=== PATIENT | female | born 1980 | race African-American/Black ===

== ENCOUNTER 2016-08-30 19:43 | Inpatient (IN) | payer MEDICAID ==
[2016-08-30 20:19] LABS: APPEARANCE,URINE CLEAR; BILIRUBIN,URINE NEGATIVE (NEGATIVE); GLUCOSE, URINE NEGATIVE (NEGATIVE); KETONES,URINE NEGATIVE (NEGATIVE); LEUKOCYTE ESTERASE,URINE NEGATIVE (NEGATIVE); NITRITE,URINE NEGATIVE (NEGATIVE); PROTEIN,URINE NEGATIVE (NEGATIVE); URINE SPECIFIC GRAVITY 1.016; UROBILINOGEN,URINE NEGATIVE mg/dL (<2.0)
[2016-08-30 20:38] LABS: URINE BARBITURATES SCREEN NEGATIVE; URINE METHADONE SCREEN NEGATIVE; URINE PHENCYCLIDINE SCREEN NEGATIVE
[2016-08-30] MEDS ORDERED: PENICILLIN G-K 5 MILLION UNIT VIAL ONE (20:38)
[2016-08-30] MEDS ORDERED: PENICILLIN G POTASSIUM 5,000,000 UNIT in DEXTROSE 5%-WATER 100 ML IV ONE (20:40)
[2016-08-30] MEDS ORDERED: MISOPROSTOL 0.2 MG TABLET ONE (21:03)
[2016-08-30] MEDS ORDERED: OXYTOCIN/NORMAL SALINE 0 UNIT/0 ML RTUINJ ONE (21:04)
[2016-08-30] MEDS ORDERED: FENTANYL/BUPIVACAINE/NS/PF 200 MCG/100 ML RTUINJ EPI ONE (21:04)
[2016-08-30] MEDS ORDERED: BUPIVACAINE HCL 0.25 % INJ/PF (2.5 MG/1 ML) 30 ML VIAL ONE (21:04)
[2016-08-30] MEDS ORDERED: EPHEDRINE SULFATE INJ 50 MG/1 ML AMPULE ONE (21:04)
[2016-08-30] MEDS ORDERED: LIDOCAINE 1% INJ-PF (10 MG/ML) 30 ML SDV ONE (21:04)
[2016-08-30] MEDS: RINGERS SOLUTION,LACTATED 1,000 ML IV PRN ×2 (21:19→21:43)
[2016-08-30 21:21] LABS: ABSOLUTE MONOCYTES (AUTO) 0.6 10^3/uL (0.1-1.4); ABSOLUTE NEUT (AUTO) 8.1 10^3/uL (1.7-8.2); BASOPHILS % (AUTO) 0.3 % (0-2); EOSINOPHILS % (AUTO) 0.4 % (0-6); HEMATOCRIT 34.2 % (36.0-47.0); HGB HCT DIFFERENCE -1.2; LYMPHOCYTES % (AUTO) 18.8 % (13-45); MEAN CORPUSCULAR HGB CONC 32.2 g/dL (32.0-36.0); MEAN CORPUSCULAR VOLUME 90 fl (80-97); MONOCYTES % (AUTO) 5.5 % (3-13); RED BLOOD COUNT 3.78 10^6/uL (3.72-5.28); RED CELL DISTRIBUTION WIDTH 14.5 % (11.5-14.0); WHITE BLOOD COUNT 10.8 10^3/uL (4.0-10.5)
[2016-08-30] MEDS ORDERED: PROMETHAZINE HCL INJ 25 MG/1 ML VIAL ONE (21:26)
[2016-08-30] MEDS ORDERED: NALBUPHINE HCL INJ 10 MG/1 ML AMPULE ONE (21:27)
[2016-08-30] MEDS ORDERED: NALOXONE HCL INJ/PF 0.4 MG/1 ML SDV ONE (21:27)
[2016-08-30] MEDS ORDERED: PENICILLIN G-K 5 MILLION UNIT VIAL IV ONE (21:30)
[2016-08-30] MEDS ORDERED: PROMETHAZINE HCL INJ 25 MG/1 ML VIAL IV ONE (21:45)
[2016-08-30] MEDS ORDERED: NALBUPHINE HCL INJ 10 MG/1 ML AMPULE INJ ONE (21:45)
--- NOTE | 2016-08-30 22:01 | L&D Flow Sheet ---
LD Flowsheet Datetime Report Generated by CPN: 08/30/2016 22:00 Datetime: 08/30/2016 21:54 NBP Sys/Mari/Mean (mmHg): 176 (QS system process) : 90 (QS system process) : 118 (QS system process) Pulse: 71 (QS system process) LaborFlag: Labor (QS system process) Datetime: 08/30/2016 21:38 IV/Blood Work: New IV Bag Hung (Jenna Todd, RN) Datetime: 08/30/2016 21:35 Analgesics/Sedatives: Nubain (mg) @ 10 (Jenna Todd, RN) Antiemetics/Antacids: Phenergan IV (mg) @ 12.5 (Jenna Todd, RN) Medication Comments: IVP (Jenna Todd, RN) Datetime: 08/30/2016 21:30 Patient Position/Activity: Right Tilt; Semi-Fowlers (Jenna Todd, RN) Hygiene: Underpad Changed (Jenna Todd, RN) Patient Care Comments: Patient pulled up in bed. (Jenna Todd, RN) Datetime: 08/30/2016 21:24 NBP Sys/Mari/Mean (mmHg): 145 (QS system process) : 86 (QS system process) : 110 (QS system process) Pulse: 88 (QS system process) LaborFlag: Labor (QS system process) Datetime: 08/30/2016 21:22 Dilatation (cm): 4.0 (Jenna Todd, RN) Effacement (%): 90 (Jenna Todd, RN) Station: -3 (Jenna Todd, RN) Exam by: B Perez RN (Jenna Todd, RN) Vaginal Bleeding: None (Jenna Todd, RN) Cervix, Consistency: Moderate (Jenna Todd, RN) Cervix, Position: Midposition (Jenna Todd, RN) Datetime: 08/30/2016 21:15 Stage of : Labor (Jenna Todd, RN) Monitor Mode: External; Palpation (Jenna Todd, RN) Frequency (min): 2.5-4 (Jenna Todd RN) Quality: Moderate (Jenna Todd RN) Duration (sec): 70-100 (Jenna Todd RN) Pattern: Normal: <= 5 Contractions in 10 Minutes (Jenna Todd RN) Resting Tone (Palpate): Relaxed (Jenna Todd RN) Monitor Mode: External US (Jenna Todd RN) Monitor Interventions for FHR: Ultrasound Adjusted (Jenna Todd RN) FHR Baseline Rate : 140 (Jenna Todd RN) FHR Baseline Changes: No Baseline Change (Jenna Todd RN) Variability: Moderate 6-25 bpm (Jenna Todd RN) Accelerations: 15X15 (Jenna Todd RN) Decelerations: Early; Variable (Jenna Todd RN) Pain Scale: 5 (Jenna Todd RN) Pain Presence: Intermittent (Jenna Todd RN) Pain Type: Contraction (Jenna Todd RN) Pain Location: Abdomen; Back (Jenna Todd RN) Pain Goal: 1 (Jenna Todd RN) Pain Relief Measures: Comfort Measures (Jenna Todd RN) Pain Coping: Breathing Through Contractions; Requesting Pain Medication or Epidural (Jenna Todd RN) Comfort Measures: Breathing/Relaxation; Family Support (Jenna Todd RN) Communication: RN at Bedside; RN Reviewed Strip (Jenna Todd RN) LaborFlag: Labor (QS system process) Datetime: 08/30/2016 21:13 Pain Coping: Requesting Pain Medication or Epidural (Jenna Todd, RN) Pain Assessment Comments: Patient requesting epidural (Jenna Todd, RN) Procedure Verify: Correct Patient Identity; Correct Side and Site are Marked; Agreement on Procedure to be Done (Jenna Todd, RN) LaborFlag: Labor (QS system process) Datetime: 08/30/2016 21:03 Monitor Interventions for FHR: Ultrasound Adjusted (Jenna Todd, RN) Datetime: 08/30/2016 21:00 Procedures: Consents Signed (Jenna Todd, RN) Datetime: 08/30/2016 20:59 Dilatation (cm): 4.0 (Jenna Todd, RN) Effacement (%): 90 (Jenna Todd, RN) Station: -3 (Jenna Todd, RN) Exam by: Shea Todd, RN (Jenna Todd, RN) Vaginal Bleeding: Normal Show (Jenna Todd, RN) Cervix, Consistency: Soft (Jenna Todd, RN) Cervix, Position: Midposition (Jenna Todd, RN) Datetime: 08/30/2016 20:58 Membrane Status: Ruptured (Jenna Todd, RN) Membranes Rupture Method: Spontaneous (Jenna Todd, RN) Amniotic Fluid Color: Light Meconium (Jenna Todd, RN) Amniotic Fluid Amount: Scant (Jenna Todd, RN) Amniotic Fluid Odor: None (Jenna Todd, RN) Datetime: 08/30/2016 20:55 NBP Sys/Mari/Mean (mmHg): 153 (QS system process) : 74 (QS system process) : 107 (QS system process) Pulse: 74 (QS system process) LaborFlag: Labor (QS system process) Datetime: 08/30/2016 20:50 Antibiotics: Start Antibiotics; Penicillin IV (Units) @ 5 million units (Jenna Todd, RN) Datetime: 08/30/2016 20:49 IV/Blood Work: IV Started; IV Bolus Started (Jenna Todd, RN) Patient Care Comments: 18 gauge in R forearm on second attempt by Mercy Geronimo RN (Jenna Todd, RN) Datetime: 08/30/2016 20:45 Stage of : Labor (Jenna Todd RN) Respirations: 18 (Jenna Todd RN) Monitor Mode: External; Palpation (Jenna Todd RN) Frequency (min): 4-5.5 (Jenna Todd RN) Quality: Moderate (Jenna Todd RN) Duration (sec): 80-120 (Jenna Todd RN) Pattern: Normal: <= 5 Contractions in 10 Minutes (Jenna Todd RN) Resting Tone (Palpate): Relaxed (Jenna Todd RN) Monitor Mode: External US (Jenna Todd RN) Monitor Interventions for FHR: Ultrasound Adjusted (Jenna Todd RN) FHR Baseline Rate : 130 (Jenna Todd RN) FHR Baseline Changes: No Baseline Change (Jenna Todd RN) Variability: Moderate 6-25 bpm (Jenna Todd RN) Accelerations: 15X15 (Jenna Todd RN) Pain Scale: 5 (Jenna Todd RN) Pain Presence: Intermittent (Jenna Todd RN) Pain Type: Contraction (Jenna Todd RN) Pain Location: Abdomen; Back (Jenna Todd RN) Pain Goal: 1 (Jenna Todd RN) Pain Relief Measures: Comfort Measures (Jenna Todd RN) Pain Coping: Breathing Through Contractions (Jenna Todd RN) Comfort Measures: Breathing/Relaxation; Family Support (Jenna Todd RN) Communication: RN at Bedside; RN Reviewed Strip (Jenna Todd RN) LaborFlag: Labor (QS system process) Datetime: 08/30/2016 20:36 Comments: maternal HR tracing, RN at bedside (Jenna Todd, RN) Datetime: 08/30/2016 20:29 Monitor Interventions for FHR: Ultrasound Adjusted (Jenna Todd, RN) Datetime: 08/30/2016 20:28 Patient Position/Activity: Right Tilt; High Fowlers (Jenna Todd, RN) Datetime: 08/30/2016 20:23 NBP Sys/Mari/Mean (mmHg): 143 (QS system process) : 93 (QS system process) : 114 (QS system process) Pulse: 76 (QS system process) LaborFlag: Antepartum (QS system process) Datetime: 08/30/2016 20:20 Frequency (min): Per patient every 6 minutes (Jenna Todd, RN) Pain Scale: 5 (Jenna Todd, RN) Pain Presence: Intermittent (Jenna Todd, RN) Pain Type: Contraction (Jenna Todd, RN) Pain Location: Abdomen; Back (Jenna Todd, RN) Pain Goal: 1 (Jenna Todd, RN) Pain Relief Measures: Comfort Measures (Jenna Todd, RN) Pain Coping: Breathing Through Contractions (Jenna Todd, RN) Vaginal Bleeding: Normal Show (Ejnna Todd, RN) Level of Consciousness: Fully Conscious (Jenna Todd, RN) DTR's/Clonus: DTRs 1+; No Clonus (Jenna Todd, RN) Headache: Denies (Jenna Todd, RN) Breath Sounds, Left: Clear and Equal (Jenna Todd, RN) Breath Sounds, Right: Clear and Equal (Jenna Todd, RN) Nausea/Vomiting: Present (Annotations: nausea) (Jenna Todd, RN) RUQ Epigastric Pain: Denies (Jenna Todd, RN) LaborFlag: Antepartum (QS system process) Datetime: 08/30/2016 20:18 Pain Scale: 5 (Jenna Todd RN) Pain Presence: Intermittent (Jenna Todd, RN) Pain Type: Contraction (Jenna Todd, RN) Pain Location: Abdomen; Back (Jenna Todd, RN) Pain Goal: 1 (Jenna Todd RN) Pain Relief Measures: Comfort Measures (Jenna Todd RN) Pain Coping: Breathing Through Contractions (Jenna Todd, RN) Comfort Measures: Breathing/Relaxation; Hot/Cold Pack; Family Support (Jenna Todd, RN) LaborFlag: Antepartum (QS system process) Datetime: 08/30/2016 20:15 Stage of : Antepartum (Jenna Todd, RN) Monitor Mode: External; Palpation (Jenna Todd, RN) Frequency (min): 2.5-5 (Jenna Todd, RN) Quality: Moderate (Jenna Todd, RN) Duration (sec): 60-100 (Jenna Todd, RN) Pattern: Normal: <= 5 Contractions in 10 Minutes (Jenna Todd, RN) Resting Tone (Palpate): Relaxed (Jenna Todd, RN) Monitor Mode: External US (Jenna Todd RN) Monitor Interventions for FHR: Ultrasound Adjusted (Jenna Todd RN) FHR Baseline Rate : 140 (Jenna Todd RN) FHR Baseline Changes: No Baseline Change (Jenna Todd RN) Variability: Minimal - Undetectable to <=5 bpm (Jenna Todd RN) Accelerations: 15X15 (Jenna Todd RN) Comments: UTD if decels present during broken strip (Jenna Todd RN) Communication: RN at Bedside; RN Reviewed Strip (Jenna Todd RN) Datetime: 08/30/2016 20:09 Comments: maternal HR, RN at bedside (Jenna Todd RN)
[2016-08-31] MEDS ORDERED: FENTANYL/BUPIVACAINE/NS/PF 200 MCG/100 ML RTUINJ EPI ONE (00:11)
[2016-08-31] MEDS ORDERED: CITRIC ACID/SODIUM CITRATE ORAL SOLN 15 ML UDCUP ONE (00:23)
[2016-08-31] MEDS ORDERED: CEFAZOLIN 2 GM/D5W RTU 2 GM/50 ML RTUPB IV ONE (00:23)
[2016-08-31] MEDS ORDERED: LIDOCAINE 2% INJ-PF (20 MG/ML) 10 ML AMPUL ONE ×2 (00:24→00:36)
[2016-08-31] MEDS ORDERED: PENICILLIN G POTASSIUM 2,500,000 UNIT in DEXTROSE 5%-WATER 50 ML IV SCH (00:41)
[2016-08-31] MEDS ORDERED: NORMAL SALINE 250 ML IV PRN ×3 (01:05→02:01)
[2016-08-31] MEDS ORDERED: MIDAZOLAM 2 MG/2 ML INJ ONE (01:06)
[2016-08-31] MEDS ORDERED: OXYTOCIN/NORMAL SALINE 20 UNIT/1,000 ML RTUINJ ONE (01:14)
[2016-08-31] MEDS ORDERED: OXYTOCIN 10 UNIT/ML VIAL ONE (01:14)
[2016-08-31] MEDS ORDERED: ONDANSETRON HCL INJ/PF 4 MG/2 ML SDV ONE (01:14)
[2016-08-31] MEDS ORDERED: OXYTOCIN/NORMAL SALINE 1,000 ML IV PRN (02:02)
[2016-08-31] MEDS ORDERED: HYDROMORPHONE HCL INJ/PF 2 MG/ML AMPULE IV PRN (02:02)
[2016-08-31] MEDS ORDERED: PROMETHAZINE HCL INJ 25 MG/1 ML VIAL IV PRN ×3 (02:02→02:07)
[2016-08-31] MEDS ORDERED: DIPH/PERTUSS(ACELL)/TETANUS VAC/PF 0.5 ML SYR (>=10YO) IM PRN (02:02)
[2016-08-31] MEDS ORDERED: RINGERS SOLUTION,LACTATED 1,000 ML IV PRN (02:02)
[2016-08-31] MEDS ORDERED: ACETAMINOPHEN 325 MG TABLET PO PRN (02:02)
[2016-08-31] MEDS ORDERED: MEASLES,MUMPS&RUBELLA VACC/PF 0.5 ML VIAL SUBCUT PRN (02:02)
[2016-08-31] MEDS ORDERED: OXYCODONE-ACETAMINOPHEN 5-325 MG TABLET PO PRN (02:02)
[2016-08-31] MEDS ORDERED: SIMETHICONE 80 MG TAB.CHEW PO PRN (02:02)
[2016-08-31] MEDS ORDERED: ONDANSETRON HCL INJ/PF 4 MG/2 ML SDV IV PRN (02:07)
[2016-08-31] MEDS ORDERED: DIPHENHYDRAMINE HCL 50 MG/ML VIAL IV PRN (02:07)
[2016-08-31] MEDS ORDERED: MEPERIDINE HCL/PF INJ 25 MG/1 ML DISP.SYRIN IV PRN (02:07)
[2016-08-31] MEDS ORDERED: LABETALOL HCL INJ 20 MG/4 ML DISP.SYRIN IV PRN (02:07)
[2016-08-31] MEDS ORDERED: MORPHINE SULFATE 10 MG/ML INJ IV PRN (02:07)
[2016-08-31] MEDS ORDERED: FENTANYL CITRATE INJ/PF 100 MCG/2 ML AMPUL IV PRN ×3 (02:07)
--- NOTE | 2016-08-31 02:18 | OPERATIVE REPORT E ---
Operative Report NAME: LILY SANCHES : 1980 AGE: 36Y DATE OF SURGERY: 08/31/2016 ROOM: LR200 PREOPERATIVE DIAGNOSIS: Nonreassuring heart tones, remote from delivery. POSTOPERATIVE DIAGNOSIS: Nonreassuring heart tones, remote from delivery. PROCEDURE PERFORMED: Primary low transverse section. SURGEON: Jose Alejandro Hester D.O. QUALITY ASSURANCE MONITOR FINAL: None. ANESTHESIA: Epidural. COMPLICATIONS: Torn left uterine artery with repair. PATHOLOGY: Placenta. ESTIMATED BLOOD LOSS: 1500 mL from acute hemorrhage. FINDINGS: 1. Viable female at 0057 hours on August 31, 2016, 8 at one minute and 9 at five minutes, weight pending dictation. 2. Very large uterus with multiple fibroids in it. 3. Torn left uterine artery secondary to weakness sin the uterine wall created by fibroids with successful repair. DESCRIPTION OF PROCEDURE: Procedure was taken to the operating room where her epidural anesthesia was found to be adequate. She was then placed in the dorsal supine position with a leftward tilt upon the operating table. She was then prepped and draped in a normal sterile fashion. A scalpel was then used to make a Pfannenstiel skin incision. The skin incision was carried down through the subcutaneous tissue to the layer of the fascia. Fascia was then incised in the midline. The fascial incision was then extended bilaterally using the Bovie cautery. The superior fascial edge was grasped with Emmanuelle clamps, elevated, and the rectus muscle was dissected off sharply and bluntly. Attention was then turned to the inferior fascial edge which was grasped with Emmanuelle clamps, elevated, and the rectus muscle dissected off sharply and bluntly. Rectus muscles were then in the midline, peritoneum identified and entered bluntly with the surgeon's hand. Bladder blade was inserted. The anterior wall of the uterus revealed multiple small fibroids, approximately 1 to 3 cm in size. A low transverse hysterotomy incision was made through the lower uterine segment of the uterus between uterine fibroids. The infant was found to be in the cephalic position and delivered through this incision without difficulty and atraumatically. There was a loose nuchal cord x1 noted. This was easily reduced. The nose and mouth were suctioned. Cord was clamped and cut. The was handed off to the awaiting nurses. Cord blood was obtained. The placenta was then manually removed from the uterus. The uterus was then unable to be exteriorized secondary due to its size secondary to the multiple large fibroids. At this time there was noted to be copious amounts of bleeding coming from the left side of the uterus and it was determined that there was a torn left uterine artery. The uterine artery was then grasped with two sponge sticks and a hysterotomy repair occurred using two layers of 1-0 Vicryl in a running locking fashion. Following closure of the repair, there was excellent hemostasis noted. Approximately 1500 mL of blood loss occurred. The left uterine artery was then observed for approximately 5 minutes and it revealed excellent hemostasis with no hematoma noted. The rectus muscles were then re-approximated using 1-0 Vicryl interrupted sutures. The fascia was then closed using 1-0 Vicryl in a running locking fashion. The subcutaneous space was made hemostatic using Bovie cautery. The subcutaneous space was closed using a 3-0 plain gut. The skin was then closed with absorbable bryn, covered with an OpSite and then with a pressure dressing. At this point in time the procedure was terminated. All sponge, lap, and needle counts were correct x2. The patient tolerated the procedure well. The patient was taken to recovery room in stable condition. DICTATING PHYSICIAN: Jose Alejandro Hester DO [id number] PHY#: [id number] ID: [id number] JOB#: [id number] ACCT: [id number] cc:Jose Alejandro Hester D.O. >
[2016-08-31] MEDS ORDERED: MORPHINE SULFATE 10 MG/ML INJ ONE (02:33)
[2016-08-31] MEDS ORDERED: FENTANYL CITRATE INJ/PF 100 MCG/2 ML AMPUL ONE (02:53)
[2016-08-31] MEDS: PENICILLIN G-K 5 MILLION UNIT VIAL IV SCH ×3 (04:26→11:01)
[2016-08-31] MEDS ORDERED: IBUPROFEN 800 MG TABLET ONE ×2 (06:26→11:51)
[2016-08-31] MEDS ORDERED: OXYCODONE-ACETAMINOPHEN 5-325 MG TABLET ONE ×2 (06:27→11:52)
[2016-08-31] MEDS: OXYCODONE-ACETAMINOPHEN 5-325 MG TABLET PO PRN ×2 (06:29→11:53)
[2016-08-31] MEDS: IBUPROFEN 800 MG TABLET PO SCH ×4 (06:29→23:41)
--- NOTE | 2016-08-31 06:58 | Delivery Summary ---
Del Sum A-C Datetime Report Generated by CPN: 08/31/2016 06:58 ADMISSION DATA Chief Complaint: Uterine Contractions; Suspected Ruptured Membranes Indication for Induction: Not Applicable Admission Impression: Term, Intrauterine ; Active Labor; Ruptured Membranes Admit Provider Comments: PCN for +GBS DELIVERY PERSONNEL Delivery Doctor:: Jose Alejandro Hester DO Anesthesiologist:: Vijay Martinez MD MEAT LOINER:: Farhad Holly CRNA Labor and Delivery Nurse:: Jenna Todd RNpbx technician Nurse:: Elsi Aparicio RN Neonatal Nurse Practitioner:: FERMIN Petersen Nursery Nurse:: Rupal Varma RN Nursery Nurse:: Sue Aquino, RN MATERNAL INFORMATION Delivery Anesthesia: Epidural Medications After Delivery: Pitocin Bolus-Please Comment Meds After Delivery Comment: pitocin 20 units in 1000 mL NSS x 2 bags after delivery Estimated Blood Loss (ml): 1500 Maternal Complications: Hemorrhage Complication Details: Torn uterine artery LABOR SUMMARY EDC: 09/02/2016 00:00 No. Babies in Womb: 1 Attempted: No Labor Anesthesia: Epidural LABOR INFORMATION Reason for Induction: Not Applicable Onset of Labor: 08/30/2016 20:59 Oxytocin: N/A Group B Beta Strep: positive Antibiotics # of Doses: 1 Antibiotics Time of Last Dose: 2049 Name of Antibiotic Given: pcn MEMBRANES Membranes Rupture Method: Spontaneous Rupture of Membranes: 08/30/2016 20:58 Length of Rupture (hr): 3.98 Amniotic Fluid Color: Light Meconium Amniotic Fluid Amount: Scant Amniotic Fluid Odor: None STAGES OF LABOR Stage 3 hr: 0 Stage 3 min: 1 Total Time in Labor hr: 3 Total Time in Labor min: 59 VAGINAL DELIVERY Episiotomy: None Laceration Extension: N/A Laceration Type: None Laceration Repair: Not Applicable Sponge Count Correct: N/A Sharps Count Correct: N/A CSECTION DELIVERY Primary Indication: Nonreassuring Status CSection Urgency: Non-Scheduled CSection Incidence: Primary Labor: Labor Elective: Nonelective CSection Incision: Lower Uterine Transverse BABY A INFORMATION Infant Delivery Date/Time: 08/31/2016 00:57 Method of Delivery: Born in Route : No : N/A Forceps: N/A Vacuum Extraction: N/A Shoulder Dystocia : No PRESENTATION/POSITION BABY A Presentation: Cephalic Cephalic Presentation: Vertex Breech Presentation: N/A PLACENTA INFORMATION BABY A Placenta Delivery Time : 08/31/2016 00:58 Placenta Method of Delivery: Manual Removal Placenta Status: Delivered SCORES BABY A Heart Rate 1 min: >100 bpm Resp Effort 1 min: Good Cry Reflex Irritability 1 min: Cough or Sneeze or Pulls Away Muscle Tone 1 min: Active Motion Color 1 min: Body [place], Extremities Blue Resuscitation Effort 1 min: Tactile Stimulation SCORE 1 MIN: 9 Heart Rate 5 min: >100 bpm Resp Effort 5 min: Good Cry Reflex Irritability 5 min: Cough or Sneeze or Pulls Away Muscle Tone 5 min: Active Motion Color 5 min: Body [place], Extremities Blue Resuscitation Effort 5 min: Tactile Stimulation SCORE 5 MIN: 9 INFORMATION BABY A Gestational Age at Delivery: 39.5 Gestational Status: Full Term- 39- 40.6 Weeks Infant Outcome : Liveborn Infant Condition : Stable Sex: Female IDENTIFICATION BABY A Verification Date/Time: 08/31/2016 01:05 ID Band Number: [id number] Mother's Name Verified: Yes Infant RN Verifying Infant: Manfred Aquino, RN Additional Verifying Personnel: SKasey Varma, RN WEIGHT/LENGTH BABY A Infant Birthweight (gm): 3525 Weight (lb): 7 Infant Weight (oz): 12 Length (in): 20.00 Length (cm): 50.80 CORD INFORMATION BABY A No. Cord Vessels: 3 Nuchal Cord : Around Neck x1, Tight Cord Blood Taken: Yes-For Eval (Mom's Blood Type - or O+) Infant Suction: Mouth; Nose ASSESSMENT BABY A Skin to Skin: No BABY B INFORMATION : N/A
--- NOTE | 2016-08-31 08:01 | L&D Flow Sheet ---
LD Flowsheet Datetime Report Generated by CPN: 08/31/2016 08:00 Datetime: 08/31/2016 07:30 Respirations: 16 (Annotations: Respiratory called and notified of pt need of incentive spirometer and teaching. ) (Daniel Barr RN) Temperature (F): 97.9 (Daniel Barr, RN) Temperature (C): 36.6 (QS system process) Pain Assessment Comments: No distress noted, pt resting comfortably (Daniel Barr, RN) Level of Consciousness: Fully Conscious (Daniel Barr, RN) Headache: Denies (Daniel Barr, RN) Breath Sounds, Left: Clear and Equal (Daniel Barr, RN) Breath Sounds, Right: Clear and Equal (Daniel Barr, RN) Nausea/Vomiting: Denies (Daniel Barr, RN) RUQ Epigastric Pain: Denies (Daniel Maceeet, RN) Datetime: 08/31/2016 07:23 Stage of : Recovery (Jenna Todd, RN) Datetime: 08/31/2016 06:29 Pain Scale: 4 (Jenna Todd, RN) Pain Presence: Constant (Jenna Todd, RN) Pain Type: Burning (Jenna Todd, RN) Pain Location: Abdomen (Jenna Todd, RN) Pain Goal: 1 (Jenna Todd, RN) Pain Relief Measures: Pain Medication Given (Jenna Todd, RN) Datetime: 08/31/2016 05:53 NBP Sys/Mari/Mean (mmHg): 150 (QS system process) : 78 (QS system process) : 104 (QS system process) Pulse: 75 (QS system process) Respirations: 18 (Jenna Todd, RN) Temperature (F): 97.8 (Jenna Todd, RN) Temperature (C): 36.6 (QS system process) Temperature Route: Axillary (Jenna Todd, RN) Pain Scale: 4 (Jenna Todd, RN) Pain Presence: Constant (Jenna Todd, RN) Pain Type: Burning (Jenna Todd, RN) Pain Location: Abdomen (Jenna Todd, RN) Pain Goal: 1 (Jenna Todd, RN) Pain Relief Measures: Comfort Measures (Jenna Todd, RN) Datetime: 08/31/2016 05:03 Pain Scale: 4 (Jenna Todd, RN) Pain Presence: Intermittent (Jenna Todd, RN) Pain Type: Burning (Jenna Todd, RN) Pain Location: Abdomen (Jenna Todd, RN) Pain Goal: 1 (Jenna Todd, RN) Pain Relief Measures: Comfort Measures (Jenna Todd, RN) Pain Assessment Comments: Patient resting in bed with eyes closed snoring when RN entered the room. As RN was leaving the room patient was resting with eyes closed. (Jenna Todd, RN) Datetime: 08/31/2016 04:59 NBP Sys/Mari/Mean (mmHg): 147 (QS system process) : 77 (QS system process) : 103 (QS system process) Pulse: 82 (QS system process) Datetime: 08/31/2016 04:36 Stage of : Recovery (Jenna Todd, RN) I/O Interventions: Clear Liquids Given (Jenna Todd RN) Patient Care Comments: warm blankets provided (Jenna Todd RN) Communication: RN at Bedside (Jenna Todd RN) Datetime: 08/31/2016 04:32 Stage of : Recovery (Jenna Todd, RN) NBP Sys/Mari/Mean (mmHg): 140 (QS system process) : 82 (QS system process) : 106 (QS system process) Pulse: 80 (QS system process) Respirations: 18 (Jenna Todd, RN) Temperature (F): 98.1 (Jenna Todd, RN) Temperature (C): 36.7 (QS system process) Temperature Route: Axillary (Jenna Todd, RN) Patient Care Comments: Blood transfusion complete (Jenna Todd, RN) Datetime: 08/31/2016 04:10 Stage of : Recovery (Jenna Todd, RN) Datetime: 08/31/2016 04:00 Stage of : Recovery (Jenna Todd, RN) Respirations: 18 (Jenna Todd, RN) Datetime: 08/31/2016 03:36 NBP Sys/Mari/Mean (mmHg): 125 (QS system process) : 78 (QS system process) : 96 (QS system process) Pulse: 83 (QS system process) Datetime: 08/31/2016 03:34 Pulse: 82 (QS system process) SpO2 (%): 99 (QS system process) Datetime: 08/31/2016 03:31 NBP Sys/Mari/Mean (mmHg): 121 (QS system process) : 76 (QS system process) : 94 (QS system process) Pulse: 82 (QS system process) Datetime: 08/31/2016 03:30 Stage of : Recovery (Jenna Todd, RN) Datetime: 08/31/2016 03:29 Pulse: 77 (QS system process) SpO2 (%): 100 (QS system process) Datetime: 08/31/2016 03:26 NBP Sys/Mari/Mean (mmHg): 123 (QS system process) : 76 (QS system process) : 95 (QS system process) Pulse: 85 (QS system process) Datetime: 08/31/2016 03:24 Pulse: 79 (QS system process) SpO2 (%): 100 (QS system process) Datetime: 08/31/2016 03:21 NBP Sys/Mari/Mean (mmHg): 133 (QS system process) : 81 (QS system process) : 102 (QS system process) Pulse: 80 (QS system process) Datetime: 08/31/2016 03:19 Pulse: 86 (QS system process) SpO2 (%): 100 (QS system process) Datetime: 08/31/2016 03:17 Stage of : Recovery (Jenna Todd, RN) Datetime: 08/31/2016 03:16 NBP Sys/Mari/Mean (mmHg): 128 (QS system process) : 79 (QS system process) : 98 (QS system process) Pulse: 81 (QS system process) Datetime: 08/31/2016 03:14 Pulse: 84 (QS system process) SpO2 (%): 100 (QS system process) Datetime: 08/31/2016 03:11 NBP Sys/Mari/Mean (mmHg): 130 (QS system process) : 90 (QS system process) : 104 (QS system process) Pulse: 80 (QS system process) Datetime: 08/31/2016 03:10 Stage of : Recovery (Jenna Todd, RN) Respirations: 16 (Jenna Todd, RN) Pain Scale: 3 (Jenna Todd, RN) Pain Presence: Constant (Jenna Todd, RN) Pain Type: Burning (Jenna Todd, RN) Pain Location: Abdomen (Jenna Todd, RN) Pain Goal: 1 (Jenna Todd, RN) Pain Relief Measures: Comfort Measures (Jenna Todd, RN) Datetime: 08/31/2016 03:09 Pulse: 86 (QS system process) SpO2 (%): 100 (QS system process) Datetime: 08/31/2016 03:06 Stage of : Recovery (Jenna Todd, RN) NBP Sys/Mari/Mean (mmHg): 126 (QS system process) : 82 (QS system process) : 99 (QS system process) Pulse: 83 (QS system process) Respirations: 18 (Jenna Todd, RN) Pain Scale: 4 (Jenna Todd, RN) Pain Presence: Constant (Jenna Todd, RN) Pain Type: Burning (Jenna Todd, RN) Pain Location: Abdomen (Jenna Todd, RN) Pain Goal: 1 (Jenna Todd, RN) Pain Relief Measures: Pain Medication Given (Jenna Todd, RN) Datetime: 08/31/2016 03:04 Pulse: 79 (QS system process) SpO2 (%): 100 (QS system process) Datetime: 08/31/2016 03:01 NBP Sys/Mari/Mean (mmHg): 129 (QS system process) : 86 (QS system process) : 102 (QS system process) Pulse: 75 (QS system process) Datetime: 08/31/2016 02:59 Pulse: 82 (QS system process) SpO2 (%): 100 (QS system process) Datetime: 08/31/2016 02:56 NBP Sys/Mari/Mean (mmHg): 121 (QS system process) : 86 (QS system process) : 99 (QS system process) Pulse: 80 (QS system process) Datetime: 08/31/2016 02:54 Stage of : Recovery (Jenna Todd, RN) Pulse: 83 (QS system process) Respirations: 18 (Jenna Todd, RN) SpO2 (%): 100 (QS system process) Datetime: 08/31/2016 02:51 NBP Sys/Mari/Mean (mmHg): 120 (QS system process) : 77 (QS system process) : 94 (QS system process) Pulse: 80 (QS system process) Datetime: 08/31/2016 02:50 Stage of : Recovery (Jenna Todd, RN) Pain Relief Measures: Pain Medication Given (Jenna Todd, RN) Datetime: 08/31/2016 02:49 NBP Sys/Mari/Mean (mmHg): 121 (QS system process) : 77 (QS system process) : 95 (QS system process) Pulse: 77 (QS system process) Pulse: 87 (QS system process) SpO2 (%): 100 (QS system process) Datetime: 08/31/2016 02:45 Stage of : Recovery (Jenna Todd, RN) Pain Scale: 4 (Jenna Todd, RN) Pain Presence: Constant (Jenna Todd, RN) Pain Type: Burning (Jenna Todd, RN) Pain Location: Abdomen (Jenna Todd, RN) Pain Goal: 1 (Jenna Todd, RN) Pain Relief Measures: Comfort Measures (Jenna Todd, RN) Datetime: 08/31/2016 02:44 Pulse: 75 (QS system process) SpO2 (%): 100 (QS system process) Datetime: 08/31/2016 02:41 NBP Sys/Mari/Mean (mmHg): 139 (QS system process) : 80 (QS system process) : 102 (QS system process) Pulse: 81 (QS system process) Datetime: 08/31/2016 02:39 Stage of : Recovery (Jenna Todd, RN) Pulse: 81 (QS system process) Respirations: 18 (Jenna Todd, RN) SpO2 (%): 99 (QS system process) Temperature (F): 97.7 (Jenna Todd, RN) Temperature (C): 36.5 (QS system process) Datetime: 08/31/2016 02:36 NBP Sys/Mari/Mean (mmHg): 135 (QS system process) : 79 (QS system process) : 102 (QS system process) Pulse: 80 (QS system process) Datetime: 08/31/2016 02:34 Pulse: 84 (QS system process) SpO2 (%): 100 (QS system process) Datetime: 08/31/2016 02:33 Stage of : Recovery (Jenna Todd, RN) Pain Relief Measures: Pain Medication Given (Jenna Todd, RN) Datetime: 08/31/2016 02:31 NBP Sys/Mari/Mean (mmHg): 120 (QS system process) : 76 (QS system process) : 93 (QS system process) Pulse: 77 (QS system process) Datetime: 08/31/2016 02:29 NBP Sys/Mari/Mean (mmHg): 120 (QS system process) : 69 (QS system process) : 88 (QS system process) Pulse: 80 (QS system process) Pulse: 79 (QS system process) SpO2 (%): 100 (QS system process) Datetime: 08/31/2016 02:24 Pulse: 86 (QS system process) SpO2 (%): 100 (QS system process) Datetime: 08/31/2016 02:20 Stage of : Recovery (Jenna Todd, RN) Respirations: 16 (Jenna Todd, RN) Pain Scale: 3 (Jenna Todd, RN) Pain Presence: Constant (Jenna Todd, RN) Pain Type: Burning (Jenna Todd, RN) Pain Location: Abdomen (Jenna Todd, RN) Pain Goal: 1 (Jenna Todd, RN) Pain Relief Measures: Comfort Measures (Jenna Todd, RN) Datetime: 08/31/2016 02:19 Pulse: 90 (QS system process) SpO2 (%): 100 (QS system process) Datetime: 08/31/2016 02:16 NBP Sys/Mari/Mean (mmHg): 108 (QS system process) : 75 (QS system process) : 88 (QS system process) Pulse: 81 (QS system process) Datetime: 08/31/2016 02:14 Pulse: 82 (QS system process) SpO2 (%): 100 (QS system process) Datetime: 08/31/2016 02:11 NBP Sys/Mari/Mean (mmHg): 108 (QS system process) : 71 (QS system process) : 85 (QS system process) Pulse: 81 (QS system process) Respirations: 18 (Jenna Todd, RN) Datetime: 08/31/2016 02:09 Pulse: 86 (QS system process) SpO2 (%): 99 (QS system process) Datetime: 08/31/2016 02:06 NBP Sys/Mari/Mean (mmHg): 110 (QS system process) : 72 (QS system process) : 84 (QS system process) Pulse: 79 (QS system process) Datetime: 08/31/2016 02:05 Stage of : Recovery (Jenna Todd, RN) Pain Scale: 1 (Jenna Todd, RN) Pain Presence: Constant (Jenna Todd, RN) Pain Type: Burning (Jenna Todd, RN) Pain Location: Abdomen (Jenna Todd, RN) Pain Goal: 1 (Jenna Todd, RN) Pain Relief Measures: Comfort Measures (Jenna Todd, RN) Datetime: 08/31/2016 02:04 Pulse: 80 (QS system process) SpO2 (%): 100 (QS system process) Datetime: 08/31/2016 01:59 Pulse: 87 (QS system process) SpO2 (%): 98 (QS system process) Datetime: 08/31/2016 01:54 Pulse: 82 (QS system process) SpO2 (%): 99 (QS system process) Datetime: 08/31/2016 01:50 Stage of : Recovery (Jenna Todd, RN) Respirations: 16 (Jenna Todd, RN) Pain Scale: 0 (Jenna Todd, RN) Pain Presence: None/Denies (Jenna Todd, RN) Pain Type: N/A (Jenna Todd, RN) Datetime: 08/31/2016 01:49 Pulse: 83 (QS system process) SpO2 (%): 98 (QS system process) Datetime: 08/31/2016 01:46 NBP Sys/Mari/Mean (mmHg): 95 (QS system process) : 63 (QS system process) : 73 (QS system process) Pulse: 85 (QS system process) Datetime: 08/31/2016 01:44 Pulse: 97 (QS system process) SpO2 (%): 98 (QS system process) Datetime: 08/31/2016 01:40 Stage of : Recovery (Elsi Alessandra, RN) Datetime: 08/31/2016 00:43 Additional Nursing Comments: pt wheeled to OR in bed (May Chalman, RN) Datetime: 08/31/2016 00:41 Frequency (min): 3-4 (May Chalman, RN) Duration (sec): 60-90 (May Chalman, RN) Monitor Mode: External US (May Chalman, RN) FHR Baseline Rate : 130 (May Chalman, RN) FHR Baseline Changes: No Baseline Change (May Chalman, RN) Variability: Minimal - Undetectable to <=5 bpm (May Chalman, RN) Decelerations: Late; Variable (May Chalman, RN) Datetime: 08/31/2016 00:38 NBP Sys/Mari/Mean (mmHg): 121 (QS system process) : 80 (QS system process) : 91 (QS system process) Antibiotics: Ancef IV (Gm) @ (Annotations: 2 grams IVPB) (Jenna Todd, RN) LaborFlag: Labor (QS system process) Datetime: 08/31/2016 00:34 Anesthesia Comments: Dr chekan bolusing epidural for C/S (Jenna Todd, RN) Datetime: 08/31/2016 00:31 Communication: Provider at Bedside (Jenna Todd, RN) Datetime: 08/31/2016 00:30 Monitor Mode: External; Palpation (May Hussein RN) Frequency (min): 2-5 (May Hussein RN) Quality: Moderate to Strong (May Hussein RN) Duration (sec): 60-90 (May Hussein, RN) Pattern: Normal: <= 5 Contractions in 10 Minutes (May Hussein RN) Resting Tone (Palpate): Relaxed (May Hussein RN) Monitor Mode: External US (May Hussein RN) FHR Baseline Rate : 130 (May Hussein RN) FHR Baseline Changes: No Baseline Change (May Hussein RN) Variability: Minimal - Undetectable to <=5 bpm (May Hussein RN) Decelerations: Late; Variable (May Hussein RN) Antiemetics/Antacids: Bicitra 15 ml PO (Jenna Todd RN) Datetime: 08/31/2016 00:25 NBP Sys/Mari/Mean (mmHg): 130 (QS system process) : 81 (QS system process) : 100 (QS system process) Pulse: 88 (QS system process) LaborFlag: Labor (QS system process) Datetime: 08/31/2016 00:20 NBP Sys/Mari/Mean (mmHg): 131 (QS system process) : 73 (QS system process) : 96 (QS system process) Pulse: 69 (QS system process) Decelerations: Prolonged (Jenna Todd, RN) IV/Blood Work: New IV Bag Hung (Jenna Todd, RN) LaborFlag: Labor (QS system process) Datetime: 08/31/2016 00:19 NBP Sys/Mari/Mean (mmHg): 131 (QS system process) : 74 (QS system process) : 95 (QS system process) Pulse: 74 (QS system process) LaborFlag: Labor (QS system process) Datetime: 08/31/2016 00:18 NBP Sys/Mari/Mean (mmHg): 127 (QS system process) : 71 (QS system process) : 92 (QS system process) Pulse: 85 (QS system process) Dilatation (cm): 5.0 (Jenna Todd, RN) Effacement (%): 90 (Jenna Todd, RN) Station: -2 (Jenna Todd, RN) Exam by: Shea Todd RN (Jenna Todd, RN) Vaginal Bleeding: Normal Show (Jenna Todd, RN) Cervix, Consistency: Soft (Jenna Todd, RN) Cervix, Position: Midposition (Jenna Todd, RN) LaborFlag: Labor (QS system process) Datetime: 08/31/2016 00:17 NBP Sys/Mari/Mean (mmHg): 130 (QS system process) : 74 (QS system process) : 96 (QS system process) Pulse: 75 (QS system process) I/O Interventions: Holloway Cath Inserted (Jenna Todd, RN) LaborFlag: Labor (QS system process) Datetime: 08/31/2016 00:15 NBP Sys/Mari/Mean (mmHg): 131 (QS system process) NBP Sys/Mari/Mean (mmHg): 135 (QS system process) : 84 (QS system process) : 89 (QS system process) : 102 (QS system process) : 107 (QS system process) Pulse: 65 (QS system process) Pulse: 74 (QS system process) Monitor Mode: External; Palpation (May Hussein RN) Frequency (min): 2-5 (May Hussein RN) Quality: Moderate to Strong (May Hussein RN) Duration (sec): 60-70 (May Hussein RN) Pattern: Normal: <= 5 Contractions in 10 Minutes (May Hussein RN) Resting Tone (Palpate): Relaxed (May Hussein RN) Monitor Mode: External US (May Hussein RN) FHR Baseline Rate : 130 (May Hussein RN) FHR Baseline Changes: No Baseline Change (May Hussein RN) Variability: Moderate 6-25 bpm (May Hussein RN) Decelerations: Variable (May Hussein RN) LaborFlag: Labor (QS system process) Datetime: 08/31/2016 00:13 NBP Sys/Mari/Mean (mmHg): 117 (QS system process) : 71 (QS system process) : 89 (QS system process) Pulse: 87 (QS system process) LaborFlag: Labor (QS system process) Datetime: 08/31/2016 00:12 NBP Sys/Mari/Mean (mmHg): 128 (QS system process) : 74 (QS system process) : 95 (QS system process) Pulse: 72 (QS system process) LaborFlag: Labor (QS system process) Datetime: 08/31/2016 00:11 NBP Sys/Mari/Mean (mmHg): 130 (QS system process) : 75 (QS system process) : 97 (QS system process) Pulse: 80 (QS system process) LaborFlag: Labor (QS system process) Datetime: 08/31/2016 00:10 NBP Sys/Mari/Mean (mmHg): 140 (QS system process) : 76 (QS system process) : 102 (QS system process) Pulse: 74 (QS system process) Resting Tone IUP (mmHg): 35 (May Hussein RN) Intensity IUP (mmHg): 100 (May Hussein RN) Contraction Comments: [id number] (May Hussein RN) LaborFlag: Labor (QS system process) Datetime: 08/31/2016 00:08 NBP Sys/Mari/Mean (mmHg): 180 (QS system process) : 96 (QS system process) : 126 (QS system process) Pulse: 74 (QS system process) LaborFlag: Labor (QS system process) Datetime: 08/31/2016 00:06 NBP Sys/Mari/Mean (mmHg): 152 (QS system process) : 86 (QS system process) : 108 (QS system process) Pulse: 89 (QS system process) Pulse: 82 (QS system process) Pulse: 102 (QS system process) SpO2 (%): 90 (QS system process) SpO2 (%): 92 (QS system process) LaborFlag: Labor (QS system process) Datetime: 08/31/2016 00:05 NBP Sys/Mari/Mean (mmHg): 148 (QS system process) : 88 (QS system process) : 113 (QS system process) Pulse: 74 (QS system process) LaborFlag: Labor (QS system process) Datetime: 08/31/2016 00:04 NBP Sys/Mari/Mean (mmHg): 176 (QS system process) : 103 (QS system process) : 129 (QS system process) Pulse: 74 (QS system process) LaborFlag: Labor (QS system process) Datetime: 08/31/2016 00:01 Pulse: 76 (QS system process) SpO2 (%): 77 (QS system process) Anesthesia Comments: epidural consent signed (Jenna Todd RN) LaborFlag: Labor (QS system process) Datetime: 08/31/2016 00:00 Monitor Mode: External; Palpation (May Hussein RN) Frequency (min): 3-4 (May Hussein RN) Quality: Moderate to Strong (May Hussein RN) Duration (sec): 70-90 (May Chalman, RN) Pattern: Normal: <= 5 Contractions in 10 Minutes (May Chalman, RN) Resting Tone (Palpate): Relaxed (May Hussein RN) Monitor Mode: External US (May Hussein RN) FHR Baseline Rate : 125 (May Hussein RN) FHR Baseline Changes: No Baseline Change (May Hussein, RN) Variability: Moderate 6-25 bpm (May Chalman, RN) Decelerations: Variable (May Sadiman, RN) Datetime: 08/30/2016 23:59 Communication: Provider at Bedside (Jenna Perez, RN) Datetime: 08/30/2016 23:58 Pulse: 72 (QS system process) SpO2 (%): 94 (QS system process) LaborFlag: Labor (QS system process) Datetime: 08/30/2016 23:56 NBP Sys/Mari/Mean (mmHg): 165 (QS system process) : 87 (QS system process) : 117 (QS system process) Pulse: 72 (QS system process) Pulse: 75 (QS system process) SpO2 (%): 99 (QS system process) LaborFlag: Labor (QS system process) Datetime: 08/30/2016 23:45 Monitor Mode: External; Palpation (May Chalman, RN) Frequency (min): 2-4 (May Chalman, RN) Quality: Moderate to Strong (May Chalman, RN) Duration (sec): 60-80 (May Chalman, RN) Pattern: Normal: <= 5 Contractions in 10 Minutes (May Chalman, RN) Resting Tone (Palpate): Relaxed (May Chalman, RN) Monitor Mode: External US (May Chalman, RN) FHR Baseline Rate : 135 (May Chalman, RN) FHR Baseline Changes: No Baseline Change (May Chalman, RN) Variability: Moderate 6-25 bpm (May Chalman, RN) Decelerations: None (May Chalman, RN) Datetime: 08/30/2016 23:30 Monitor Mode: External; Palpation (May Chalman, RN) Frequency (min): 2-6 (May Chalman, RN) Quality: Moderate to Strong (May Chalman, RN) Duration (sec): 60-90 (May Chalman, RN) Pattern: Normal: <= 5 Contractions in 10 Minutes (May Chalman, RN) Resting Tone (Palpate): Relaxed (May Chalman, RN) Monitor Mode: External US (May Chalman, RN) FHR Baseline Rate : 135 (May Chalman, RN) FHR Baseline Changes: No Baseline Change (May Chalman, RN) Variability: Moderate 6-25 bpm (May Chalman, RN) Decelerations: Variable (May Chalman, RN) Datetime: 08/30/2016 23:15 Monitor Mode: Internal (Jenna Todd, RN) Frequency (min): 1.5-4 (Jenna Todd, RN) Quality: Moderate (Jenna Todd, RN) Duration (sec): 60-120 (Jenna Todd, RN) Pattern: Normal: <= 5 Contractions in 10 Minutes (Jenna Todd, RN) Resting Tone (Palpate): Relaxed (Jenna Todd, RN) Monitor Mode: Internal Scalp Electrode (Jenna Todd, RN) FHR Baseline Rate : 130 (Jenna Todd, RN) FHR Baseline Changes: No Baseline Change (Jenna Todd, RN) Variability: Moderate 6-25 bpm (Jenna Todd, RN) Accelerations: 15X15 (Jenna Todd, RN) Decelerations: Variable (Jenna Todd, RN) Datetime: 08/30/2016 23:13 Actions for Decelerations: Provider Reviewed Strip (Jenna Todd RN) Datetime: 08/30/2016 23:07 Pain Scale: 5 (Jenna Todd RN) Pain Presence: Intermittent (Jenna Todd RN) Pain Type: Contraction (Jenna Todd RN) Pain Location: Abdomen; Back (Jenna Todd RN) Pain Goal: 1 (Jenna Todd RN) Pain Relief Measures: Comfort Measures (Jenna Todd RN) Pain Coping: Breathing Through Contractions; Requesting Pain Medication or Epidural (Jenna Todd RN) IV/Blood Work: IV Started (Jenna Todd RN) Comfort Measures: Breathing/Relaxation (Jenna Todd RN) Procedure Type: EPIDURAL (Jenna Todd RN) Procedure Verify: Correct Patient Identity; Correct Side and Site are Marked; Agreement on Procedure to be Done; Correct Patient Position; Relevant Images and Results are Properly Labeled and Displayed; Addressed Need to Administer Antibiotics or Fluids for Irrigation; Safety Precautions Based on Patient History or Medication Use (Jenna Todd RN) LaborFlag: Labor (QS system process) Datetime: 08/30/2016 23:03 Patient Care Comments: FSE applied (May Hussein, RN) Datetime: 08/30/2016 23:00 Stage of : Labor (Jenna Todd, RN) Monitor Mode: External; Internal; Palpation (Jenna Todd, RN) Frequency (min): 3-6 (Jenna Todd, RN) Quality: Moderate (Jenna Todd, RN) Duration (sec): 70-100 (Jenna Todd, RN) Pattern: Normal: <= 5 Contractions in 10 Minutes (Jenna Todd, RN) Resting Tone (Palpate): Relaxed (Jenna Todd, RN) Monitor Mode: External US (Jenna Todd, RN) FHR Baseline Rate : 130 (Jenna Todd, RN) FHR Baseline Changes: No Baseline Change (Jenna Todd, RN) Variability: Minimal - Undetectable to <=5 bpm (Jenna Todd, RN) Accelerations: 10X10 (Jenna Todd, RN) Decelerations: Variable (Jenna Todd, RN) Communication: RN at Bedside; RN Reviewed Strip (Jenna Todd, RN) Datetime: 08/30/2016 22:58 Dilatation (cm): 5.0 (Jenna Todd, RN) Effacement (%): 90 (Jenna Todd, RN) Station: -2 (Jenna Todd, RN) Exam by: Dr Hester (Jenna Todd, RN) Vaginal Bleeding: Normal Show (Jenna Todd, RN) Cervix, Consistency: Soft (Jenna Todd, RN) Cervix, Position: Midposition (Jenna Todd, RN) Patient Care Comments: IUPC inserted. amnioinfusion started (May Hussein RN) Datetime: 08/30/2016 22:56 Communication: Provider at Bedside (Jenna Todd, ELIECER) Communication Comments: Dr Hester at bedside for IUPC, Amnioinfusion and FSE placement. (Jenna Todd, RN) Datetime: 08/30/2016 22:45 Stage of : Labor (Jenna Todd, RN) Monitor Mode: External (Jenna Todd, RN) Frequency (min): 2-6 (Jenna Todd, RN) Quality: Moderate (Jenna Todd, RN) Duration (sec): 70-90 (Jenna Todd, RN) Pattern: Normal: <= 5 Contractions in 10 Minutes (Jenna Todd, RN) Resting Tone (Palpate): Relaxed (Jenna Todd, RN) Monitor Mode: External US (Jenna Todd, RN) FHR Baseline Rate : 130 (Jenna Todd, RN) FHR Baseline Changes: No Baseline Change (Jenna Todd, RN) Variability: Moderate 6-25 bpm (Jenna Todd, RN) Accelerations: 15X15 (Jenna Todd, RN) Decelerations: Variable (Jenna Todd, RN) Communication: RN at Bedside; RN Reviewed Strip (Jenna Todd, RN) Datetime: 08/30/2016 22:30 Stage of : Labor (Jenna Todd, RN) Respirations: 18 (Jenna Todd, RN) Monitor Mode: External; Palpation (Jenna Todd, RN) Frequency (min): 2-4 (Jenna Todd, RN) Quality: Moderate (Jenna Todd, RN) Duration (sec): 90-120 (Jenna Todd, RN) Pattern: Normal: <= 5 Contractions in 10 Minutes (Jenna Todd RN) Resting Tone (Palpate): Relaxed (Jenna Todd RN) Monitor Mode: External US (Jenna Todd RN) Monitor Interventions for FHR: Ultrasound Adjusted (Jenna Todd RN) FHR Baseline Rate : 130 (Jenna Todd RN) FHR Baseline Changes: No Baseline Change (Jenna Todd RN) Variability: Minimal - Undetectable to <=5 bpm (Jenna Todd RN) Accelerations: 10X10 (Jenna Todd RN) Decelerations: Variable (Jenna Todd RN) Pain Scale: 4 (Jenna Todd RN) Pain Presence: Intermittent (Jenna Todd RN) Pain Type: Contraction (Jenna Todd RN) Pain Location: Abdomen; Back (Jenna Todd RN) Pain Goal: 1 (Jenna Todd RN) Pain Relief Measures: Comfort Measures (Jenna Todd RN) Comfort Measures: Breathing/Relaxation; Family Support (Jenna Todd RN) Communication: RN at Bedside; RN Reviewed Strip (Jenna Todd RN) LaborFlag: Labor (QS system process) Datetime: 08/30/2016 22:27 Actions for Decelerations: Oxygen Applied (Jenna oTdd RN) Actions for Decelerations: Side to Side (Jenna Todd RN) Datetime: 08/30/2016 22:24 NBP Sys/Mari/Mean (mmHg): 167 (QS system process) : 94 (QS system process) : 117 (QS system process) Pulse: 73 (QS system process) Monitor Interventions for FHR: Ultrasound Adjusted (Jenna Todd, RN) LaborFlag: Labor (QS system process) Datetime: 08/30/2016 22:23 Comments: maternal HR tracing RN at bedside (Jenna Todd, RN) Datetime: 08/30/2016 22:22 Monitor Interventions for FHR: Ultrasound Adjusted (Jenna Todd, RN) Comments: maternal HR tracing, patient sitting up at side of bed, RN at bedside (Jenna Todd, RN) Datetime: 08/30/2016 22:19 Actions for Decelerations: Sterile Vaginal Exam (Jenna Todd, RN) Dilatation (cm): 5.0 (Jenna Todd, RN) Effacement (%): 90 (Jenna Todd, RN) Station: -2 (Jenna Todd, RN) Exam by: Shea Todd RN (Jenna Todd, RN) Vaginal Bleeding: Normal Show (Jenna Todd, RN) Cervix, Consistency: Soft (Jenna Todd, RN) Cervix, Position: Midposition (Jenna Todd, RN) Datetime: 08/30/2016 22:15 Stage of : Labor (Ejnna Todd, RN) Monitor Mode: External (Jenna Todd, RN) Frequency (min): 1.5-4.5 (Jenna Todd, RN) Quality: Moderate (Jenna Todd, RN) Duration (sec): 80-100 (Jenna Todd, RN) Pattern: Normal: <= 5 Contractions in 10 Minutes (Jenna Todd, RN) Resting Tone (Palpate): Relaxed (Jenna Todd, RN) Monitor Mode: External US (Jenna Todd, RN) Monitor Interventions for FHR: Ultrasound Adjusted (Jenna Todd, RN) FHR Baseline Rate : 130 (Jenna Todd, RN) FHR Baseline Changes: No Baseline Change (Jenna Todd, RN) Variability: Minimal - Undetectable to <=5 bpm (Jenna Todd, RN) Accelerations: 10X10 (Jenna Todd, RN) Decelerations: Variable (Jenna Todd, RN) Communication: RN at Bedside; RN Reviewed Strip (Jenna Todd, RN) Datetime: 08/30/2016 22:12 Actions for Decelerations: IV Bolus (Jenna Todd, RN) Datetime: 08/30/2016 22:10 NBP Sys/Mari/Mean (mmHg): 169 (QS system process) : 75 (QS system process) : 108 (QS system process) Pulse: 73 (QS system process) LaborFlag: Labor (QS system process) Datetime: 08/30/2016 22:06 NBP Sys/Mari/Mean (mmHg): 151 (QS system process) : 105 (QS system process) : 124 (QS system process) Pulse: 75 (QS system process) LaborFlag: Labor (QS system process) Datetime: 08/30/2016 22:00 Stage of : Labor (Jenna Todd, RN) Respirations: 18 (Jenna Todd, RN) Monitor Mode: External (Jenna Todd, RN) Frequency (min): 2-4.5 (Jenna Todd, RN) Quality: Moderate (Jenna Todd, RN) Duration (sec): 90-130 (Jenna Todd, RN) Pattern: Normal: <= 5 Contractions in 10 Minutes (Jenna Todd, RN) Resting Tone (Palpate): Relaxed (Jenna Todd, RN) Monitor Mode: External US (Jenna Todd, RN) FHR Baseline Rate : 130 (Jenna Todd, RN) FHR Baseline Changes: No Baseline Change (Jenna Todd, RN) Variability: Moderate 6-25 bpm (Jenna Todd RN) Accelerations: 10X10 (Jenna Todd RN) Decelerations: Variable (Jenna Todd RN) Pain Scale: 4 (Jenna Todd RN) Pain Presence: Intermittent (Jenna Todd RN) Pain Type: Contraction (Jenna Todd RN) Pain Location: Abdomen; Back (Jenna Todd RN) Pain Goal: 1 (Jenna Todd RN) Pain Relief Measures: Comfort Measures (Jenna Todd RN) Pain Coping: Breathing Through Contractions (Jenna Todd RN) Comfort Measures: Breathing/Relaxation; Family Support (Jenna Todd RN) Communication: RN at Bedside; RN Reviewed Strip (Jenna Todd RN) LaborFlag: Labor (QS system process)
[2016-08-31 08:06] LABS: HEMATOCRIT 33.7 % (36.0-47.0); HEMOGLOBIN 10.7 g/dL (12.0-15.5); HGB HCT DIFFERENCE -1.6; MEAN CORPUSCULAR HEMOGLOBIN 29.1 pg (27.0-33.4); MEAN CORPUSCULAR HGB CONC 31.7 g/dL (32.0-36.0); MEAN CORPUSCULAR VOLUME 92 fl (80-97); RED BLOOD COUNT 3.67 10^6/uL (3.72-5.28); RED CELL DISTRIBUTION WIDTH 14.2 % (11.5-14.0); WHITE BLOOD COUNT 12.7 10^3/uL (4.0-10.5)
[2016-08-31] MEDS ORDERED: PRENATAL VITAMIN W-O CA NO5/FE FUMARATE/FA CAPSULE ONE (09:44)
[2016-08-31] MEDS ORDERED: DOCUSATE SODIUM 100 MG CAPSULE ONE (09:44)
[2016-08-31] MEDS: PRENATAL VITAMIN W-O CA NO5/FE FUMARATE/FA CAPSULE PO SCH (09:45)
[2016-08-31] MEDS: DOCUSATE SODIUM 100 MG CAPSULE PO SCH ×2 (09:45→17:35)
--- NOTE | 2016-08-31 13:14 | Admission Physical ---
Datetime Report Generated by CPN: 08/31/2016 13:14 CURRENT ADMISSION Chief Complaint: Uterine Contractions; Suspected Ruptured Membranes Indication for Induction: Not Applicable Admit Plan: Admit to Unit; Initiate Labor Protocol ALLERGIES Medication Allergies: No Medication Allergies: No Known Allergies (08/30/2016) Latex: No Latex Allergies Food Allergies: none Environmental Allergies: none OBSTETRICAL HISTORY EDC: 09/02/2016 00:00 : 5 Para: 4 (Annotations: Data stored by N on behalf of user) Term: 4 : 0 SAB: 0 IAB: 0 Ectopic: 0 Livin Cesareans: 0 VBACs: 0 Multiple Births: 0 Gestational Diabetes: No Rh Sensitization: No Incompetent Cervix: No ESTELITA: No Infertility: No ART Treatment: No Uterine Anomaly: No IUGR: No Hx Previous C/S: No Macrosomia: No Hx Loss/Stillborn: No PIH: No Hx : No Placenta Previa/Abruption: No Depression/PP Depression: Yes PTL/PROM: No Post Hemorrhage: No Current Procedures: Ultrasound; NST Obstetrical History Comments: G1: 02/2000 PPD G2: 01/2003 G3: 03/2004 G4: 12/2013 G5: Current SEE RECORDS Alcohol: No Marijuana : No Cocaine: No Other Illicit Drugs: No Cigarettes: Former Smoker. [id number] MEDICAL HISTORY Diabetes: No Blood Transfusion: Yes Pulmonary Disease (Asthma, TB): No Breast Disease: No Hypertension: No Watch Commander Surgery: No Heart Disease: No Hosp/Surgery: Yes Autoimmune Disorder: No Anesthetic Complications: No Kidney Disease: No Abnormal Pap Smear: No Neuro/Epilepsy: No Psychiatric Disorders: No Other Medical Diseases: No Hepatitis/Liver Disease: No Significant Family History: No Varicosities/Phlebitis: No Trauma/Violence : No Thyroid Dysfunction: No Medical History Comments: Blood Transfusion for anemia 12/2015, broken ankle INFECTIOUS HISTORY Gonorrhea: No Genital Herpes: No Chlamydia: No Tuberculosis: No Syphilis: No Hepatitis: No HIV/AIDS Exposure: No Rash or Viral Illness: No HPV: No PHYSICAL EXAM General: Normal HEENT: Normal Neurologic: Normal Thyroid: Deferred Heart: Normal Lungs: Normal Breast: Deferred Back: Normal Abdomen: Normal Genitourinary Exam: Normal Extremities: Normal DTRs: Normal Pelvic Type: Adequate Vital Signs: Reviewed; Within Normal Limits VAGINAL EXAM Dilatation: 5 Effacement: 90 Station: -2 MEMBRANES Membranes: Ruptured Amniotic Fluid Color: Meconium, Light FETUS A EGA: 39.5 Monitoring: External US FHR- Baseline: 130 Variability: Moderate 6-25bpm Accelerations: 15X15 Decelerations: Variable FHR Category: Category II Admit Comment: PCN for +GBS PLANS FOR LABOR AND DELIVERY Pain Management: Epidural Feeding Preference: Both Benefit of Breast Feed Discussed: Yes Circumcision: N/A INFORMED CONSENT Signature: with User ID: [email or web address]
--- NOTE | 2016-08-31 19:01 | L&D Flow Sheet ---
LD Flowsheet Datetime Report Generated by CPN: 08/31/2016 19:00 Datetime: 08/31/2016 13:00 Respirations: 16 (Daniel Cortney, RN) Pain Scale: 2 (Daniel Cortney, RN) Pain Presence: Constant (Daniel Cortney, RN) Pain Type: Ache (Daniel Cortney, RN) Pain Location: Abdomen (Daniel Cortney, RN) Datetime: 08/31/2016 12:19 NBP Sys/Mari/Mean (mmHg): 139 (QS system process) : 82 (QS system process) : 105 (QS system process) Pulse: 74 (QS system process) Datetime: 08/31/2016 12:04 NBP Sys/Mari/Mean (mmHg): 158 (QS system process) : 85 (QS system process) : 112 (QS system process) Pulse: 72 (QS system process) Datetime: 08/31/2016 12:00 Respirations: 16 (Daniel Barr RN) Temperature (F): 98.0 (Daniel Barr RN) Temperature (C): 36.7 (QS system process) Pain Scale: 3 (Daniel Barr RN) Pain Presence: Constant (Daniel Barr RN) Pain Type: Ache (Daniel Barr RN) Pain Location: Abdomen (Daniel Barr RN) Pain Relief Measures: Pain Medication Given; Comfort Measures (Daniel Barr RN) Datetime: 08/31/2016 11:00 Respirations: 18 (Daniel Barr, RN) Pain Assessment Comments: Pt sleeping, no distress noted, no complaints. (Daniel Maceeet, RN) Datetime: 08/31/2016 10:04 NBP Sys/Mari/Mean (mmHg): 148 (QS system process) : 85 (QS system process) : 111 (QS system process) Pulse: 75 (QS system process) Datetime: 08/31/2016 10:00 Respirations: 16 (Daniel Barr, RN) Pain Assessment Comments: Pt sleeping, Mother at bedside to care for infant. (Daniel Barr RN) Datetime: 08/31/2016 08:04 NBP Sys/Mari/Mean (mmHg): 137 (QS system process) : 77 (QS system process) : 102 (QS system process) Pulse: 76 (QS system process) Datetime: 08/31/2016 08:00 Pain Scale: 3 (Daniel Barr RN) Pain Presence: Constant (Daniel Barr RN) Pain Type: Ache (Daniel Barr RN) Pain Location: Abdomen (Daniel Barr RN) Pain Relief Measures: Comfort Measures (Daniel Barr RN) Pain Assessment Comments: Pt c/o discomfort while changing positions in bed; no distress noted. (Daniel Barr RN) Datetime: 08/31/2016 07:30 Respirations: 16 (Annotations: Respiratory called and notified of pt need of incentive spirometer and teaching. ) (Daniel Barr RN) Temperature (F): 97.9 (Daniel Barr RN) Temperature (C): 36.6 (QS system process) Pain Assessment Comments: No distress noted, pt resting comfortably (Daniel Barr RN) Level of Consciousness: Fully Conscious (Daniel Barr RN) Headache: Denies (Daniel Barr RN) Breath Sounds, Left: Clear and Equal (Daniel Barr RN) Breath Sounds, Right: Clear and Equal (Daniel Barr RN) Nausea/Vomiting: Denies (Daniel Barr RN) RUQ Epigastric Pain: Denies (Daniel Barr RN) Datetime: 08/31/2016 07:23 Stage of : Recovery (Jenna Todd RN)
[2016-09-01] MEDS: IBUPROFEN 800 MG TABLET PO SCH ×3 (05:32→18:03)
--- NOTE | 2016-09-01 06:01 | L&D General Admission ---
General Admit Datetime Report Generated by N: 09/01/2016 06:00 INFORMATION Patient Age: 36 (08/30/2016 19:43:QS system process) EDC: 09/02/2016 00:00 (08/30/2016 19:46:May Hussein RN) : 5 (08/30/2016 19:46:May Hussein RN) Para: 4 (Annotations: Data stored by [facility] on behalf of user) (08/30/2016 19:46:May Hussein RN) Term: 4 (08/30/2016 19:46:Jenna Todd RN) : 0 (08/30/2016 19:46:Jenna Todd RN) Spontaneous Abortions: 0 (08/30/2016 19:46:Jenna Todd RN) Induced Abortions: 0 (08/30/2016 19:46:Jenna Todd RN) Livin (08/30/2016 19:46:Jenna Todd RN) Cesareans: 0 (08/30/2016 19:46:Jenna Todd RN) VBACs: 0 (08/30/2016 19:46:Jenna Todd RN) Ectopic: 0 (08/30/2016 19:46:Jenna Todd RN) Multiple Births: 0 (08/30/2016 19:46:Jenna Todd RN) Baby, Number in Womb: 1 (08/30/2016 19:46:Jenna Todd RN) CARE Primary Paratransit Operator: [facility] (08/30/2016 19:46:Jenna Todd RN) Adequate Care: Yes (08/30/2016 19:46:Jenna Todd RN) Height (in): 64 (08/31/2016 13:49:QS system process) ALLERGIES Medication Allergy: No (08/30/2016 19:46:Jenna Todd RN) Medication Allergies: No Known Allergies (08/30/2016) (08/30/2016 19:50:QS system process) Latex Allergy: No Latex Allergies (08/30/2016 19:46:Jenna Todd, RN) Food Allergies: none (08/30/2016 19:46:Jennaremington Todd RN) Environmental Allergies: none (08/30/2016 19:46:Jenna Todd, RN) COMMUNICATION Primary Language: Kazakh (08/30/2016 19:46:Jenna Todd RN) Medical Tx Preferred Language: Kazakh (08/30/2016 19:46:Jenna Todd, RN) DEMOGRAPHICS Address: [address] [place] [id number] (08/30/2016 19:43:QS system process) Zipcode: [id number] (08/30/2016 19:43:QS system process) Home (08/30/2016 19:43:QS system process) SSN: [id number] (08/30/2016 19:43:QS system process) Next of Kin Name: FABIOLA PEDRO (08/30/2016 19:43:QS system process) Next of Kin (08/30/2016 19:43:QS system process) Next of Kin Relationship: OR (08/30/2016 19:43:QS system process) Date of : 1980 (08/30/2016 19:43:QS system process) Marital Status: Single (08/30/2016 19:43:QS system process) Sex: Female (08/30/2016 19:43:QS system process) Race: (08/30/2016 19:43:QS system process) Ethnicity: Non- or (08/30/2016 19:43:QS system process) Holiness: Other (08/30/2016 19:43:QS system process) DRUG AND ALCOHOL USE Alcohol: No (08/30/2016 19:46:Jenna Todd, RN) Cigarettes: Former Smoker. [id number] (08/30/2016 19:46:Jenna Todd, RN) Marijuana: No (08/30/2016 19:46:Jenna Todd, RN) Cocaine: No (08/30/2016 19:46:Jenna Todd, RN) Other Illicit Drugs: No (08/30/2016 19:46:Jenna Todd, RN) VACCINE HISTORY Influenza Vaccine: No (08/30/2016 19:46:Jenna Todd RN) Pneumococcal Vaccine: No (08/30/2016 19:46:Jenna Todd RN) Tetanus Vaccine: No (08/30/2016 19:46:Jenna Todd RN) Tdap Vaccine: No (08/30/2016 19:46:Jenna Todd RN) Hepatitis B Vaccine: Yes (08/30/2016 19:46:Jenna Todd RN) Rn Gastroenterology: [facility] (08/30/2016 19:46:Jenna Todd RN) Feeding Preference: Both (08/30/2016 19:46:Jenna Todd RN) Benefit of Breast Feed Discussed: Yes (08/30/2016 19:46:Elsi Aparicio RN) Circumcision: N/A (08/30/2016 19:46:Jenna Todd RN) Classes Attended: No (08/30/2016 19:46:Jenna Todd RN) Tubal Ligation: No (08/30/2016 19:46:Jenna Todd RN) Tubal Authorization Signed: N/A (08/30/2016 19:46:Jenna Todd RN) Consent: N/A (08/30/2016 19:46:Jenna Todd RN) Consent Signed: N/A (08/30/2016 19:46:Jenna Todd RN) Pain Management Plans: Epidural (08/30/2016 19:46:Jenna Todd RN) Other Labor and Delivery Plans: skin to skin (08/30/2016 19:46:Jenna Todd RN) Support Person: Fabiola (08/30/2016 19:46:Jenna Todd RN) Support Person Relationship: Mother (08/30/2016 19:46:Jenna Todd RN) Cultural/Spritual Practice: No (08/30/2016 19:46:Jenna Todd RN) Spir/Cult Dietary Needs: No (08/30/2016 19:46:Jenna Todd RN) LIVING SITUATION/DISCHARGE PLAN Living Arrangements: House (08/30/2016 19:46:Jenna Todd RN) Adequate Access to:: Electric; Heat; Refrigeration; Plumbing/Running water; Phone; Transportation (08/30/2016 19:46:Jenna Todd RN) WIC Program: Needs referral (08/30/2016 19:46:Jenna Todd RN) Discharge Job Recruiter Person: Fabiola (08/30/2016 19:46:Jenna Todd RN) Person to Help after Discharge: Fabiola (08/30/2016 19:46:Jenna Todd RN) Currently Using Commun Resources: Yes (08/30/2016 19:46:Jenna Todd RN) Specify Current Resource Used: Medicaid (08/30/2016 19:46:Jenna Todd RN) Outside Agency/Petroleum Refinery Laborer: No (08/30/2016 19:46:Jenna Todd RN) Car Seat for Discharge: Yes (08/30/2016 19:46:Jenna Todd RN) Adoption Requested: No (08/30/2016 19:46:Jenna Todd RN) Pt Contact w/ Post : N/A (08/30/2016 19:46:Jenna Todd RN) LABS Blood Type: O Positive (08/30/2016 19:46:May Hussein RN) Antibody Screen: negative (08/30/2016 19:46:May Hussein RN) Hemoglobin: 10.7 L (08/31/2016 07:49:QS system process) Hematocrit: 33.7 L (08/31/2016 07:49:QS system process) MCV: 92 (08/31/2016 07:49:QS system process) Group Beta Strep: positive (08/30/2016 19:46:May Hussein RN) Gonorrhea: Negative (08/30/2016 19:46:May Hussein RN) Chlamydia: Negative (08/30/2016 19:46:May Hussein RN) RPR/VDRL: Nonreactive (08/30/2016 19:46:May Hussein RN) HIV Exposure Test: Negative (08/30/2016 19:46:May Hussein RN) Hepatitis B: Negative (08/30/2016 19:46:May Hussein RN) Rubella: Non-Immune (08/30/2016 19:46:May Hussein RN) Varicella: Non Susceptible (08/30/2016 19:46:May Hussein RN) OB/PREVIOUS HISTORY Previous Procedures: Ultrasound; NST (08/30/2016 19:46:Jenna Todd RN) Current Procedures: Ultrasound; NST (08/30/2016 19:46:Jenna Todd RN) History of Previous : No (08/30/2016 19:46:Jenna Todd RN) History of Gestational Diabetes: No (08/30/2016 19:46:Jenna Todd RN) History of PIH: No (08/30/2016 19:46:Jenan Todd RN) History of Incompetent Cervix: No (08/30/2016 19:46:Jenna Todd RN) History of Placenta Previa/Abrup: No (08/30/2016 19:46:Jenna Todd RN) History of Macrosomia: No (08/30/2016 19:46:Jenna Todd RN) History of IUGR: No (08/30/2016 19:46:Jenna Todd RN) History of Hemorrhage: No (08/30/2016 19:46:Jenna Todd RN) History of Loss/Stillborn: No (08/30/2016 19:46:Jenna Todd RN) History of : No (08/30/2016 19:46:Jenna Todd RN) History of D (Rh) Sensitization: No (08/30/2016 19:46:Jenna Todd RN) History Recurrent Loss/Stillborn: No (08/30/2016 19:46:Jenna Todd RN) History Depression/PP Depression: Yes (08/30/2016 19:46:Jenna Todd RN) History of Uterine Anomaly/ESTELITA: No (08/30/2016 19:46:Jenna Todd RN) History of Infertility: No (08/30/2016 19:46:Jenna Todd RN) History of ART Treatment: No (08/30/2016 19:46:Jenna Todd RN) History of ESTELITA: No (08/30/2016 19:46:Jenna Todd RN) Comments Obstetrical History: G1: 02/2000 PPD G2: 01/2003 G3: 03/2004 G4: 12/2013 G5: Current (08/30/2016 19:46:Jenna Todd RN) MEDICAL HISTORY Med Hx Diabetes: No (08/30/2016 19:46:Jenna Todd RN) Med Hx Hypertension: No (08/30/2016 19:46:Jenna Todd RN) Med Hx Heart Disease: No (08/30/2016 19:46:Jenna Todd RN) Med Hx Autoimmune Disorder: No (08/30/2016 19:46:Jenna Todd RN) Med Hx Kidney Disease/UTI: No (08/30/2016 19:46:Jenna Todd RN) Med Hx Neurologic/Epilepsy: No (08/30/2016 19:46:Jenna Todd RN) Med Hx Psychiatric Disorders: No (08/30/2016 19:46:Jenna Todd RN) Med Hx Hepatitis/Liver Disease: No (08/30/2016 19:46:Jenna Todd RN) Med Hx Varicosities/Phlebitis: No (08/30/2016 19:46:Jenna Todd RN) Med Hx Thyroid Dysfunction: No (08/30/2016 19:46:Jenna Todd RN) Med Hx Trauma/Violence: No (08/30/2016 19:46:Jenna Todd RN) Med Hx Blood Transfusion: Yes (08/30/2016 19:46:Jenna Todd RN) Med Hx Pulmonary (Asthma,TB): No (08/30/2016 19:46:Jenna Todd RN) Med Hx Breast: No (08/30/2016 19:46:Jenna Todd RN) Med Hx RACE CAR DRIVER Surgery: No (08/30/2016 19:46:Jenna Todd RN) Med Hx Hospitalization/Surgery: Yes (08/30/2016 19:46:Jenna Todd RN) Med Hx Anesthetic Complications: No (08/30/2016 19:46:Jenna Todd RN) Med Hx Abnormal Pap Smear: No (08/30/2016 19:46:Jenna Todd RN) Other Medical Diseases: No (08/30/2016 19:46:Jenna Todd RN) Med Hx Significant Family Hx: No (08/30/2016 19:46:Jenna Todd RN) Details of Med/Surg Hx: Blood Transfusion for anemia 12/2015, broken ankle (08/30/2016 19:46:Jenna Todd RN) INFECTIOUS HISTORY Inf Hx Gonorrhea: No (08/30/2016 19:46:Jenna Todd RN) Inf Hx Chlamydia: No (08/30/2016 19:46:Jenna Todd RN) Inf Hx Syphilis: No (08/30/2016 19:46:Jenna Todd RN) Inf Hx HIV/AIDS: No (08/30/2016 19:46:Jenna Todd RN) Inf Hx Human Papilloma Virus: No (08/30/2016 19:46:Jenna Todd RN) Inf Hx Pt/Partner Genital Herpes: No (08/30/2016 19:46:Jenna Todd RN) Inf Hx Tuberculosis/Exposure: No (08/30/2016 19:46:Jenna Todd RN) Inf Hx Hepatitis B,C: No (08/30/2016 19:46:Jenna Todd RN) Inf Hx Rash or Viral Illness: No (08/30/2016 19:46:Jenna Todd RN) GENETIC HISTORY Gen Hx Age >=35 at JASON: No (08/30/2016 19:46:Jenna Todd RN) Gen Hx Thalassemia: No (08/30/2016 19:46:Jenna Todd RN) Gen Hx Congenital Heart Defect: No (08/30/2016 19:46:Jenna Todd RN) Gen Hx Neural Tube Defect: No (08/30/2016 19:46:Jenna Todd RN) Gen Hx Down's Syndrome: No (08/30/2016 19:46:Jenna Todd RN) Gen Hx Abel-Sachs: No (08/30/2016 19:46:Jenna Todd RN) Gen Hx Payton: No (08/30/2016 19:46:Jenna Todd RN) Gen Hx Familial Dysautonomia: No (08/30/2016 19:46:Jenna Todd RN) Gen Hx Sickle Cell Disease/Trait: No (08/30/2016 19:46:Jenna Todd RN) Gen Hx Hemophilia/Blood Disorder: No (08/30/2016 19:46:Jenna Todd RN) Gen Hx Muscular Dystrophy: No (08/30/2016 19:46:Jenna Todd RN) Gen Hx Cystic Fibrosis: No (08/30/2016 19:46:Jenna Todd RN) Gen Hx Huntingtons Chorea: No (08/30/2016 19:46:Jenna Todd RN) Gen Hx Mental Retardation/Autism: No (08/30/2016 19:46:Jenna Todd RN) Gen Hx Tested for Fragile X: No (08/30/2016 19:46:Jenna Todd RN) Gen Hx Other Inher/Chromosomal: No (08/30/2016 19:46:Jenna Todd RN) Gen Hx Maternal Metabolic DO: No (08/30/2016 19:46:Jenna Todd RN) Gen Hx Pt Father or FOB Defect: No (08/30/2016 19:46:Jenna Todd RN) Gen Hx Other Genetic History: No (08/30/2016 19:46:Jenna Todd RN) Gen Hx Drugs/Meds since LMP: No (08/30/2016 19:46:Jenna Todd RN)
--- NOTE | 2016-09-01 06:01 | L&D Current Admission ---
Current Admit Datetime Report Generated by CPN: 09/01/2016 06:00 ADMISSION INFORMATION Current Admit Date/Time: 08/30/2016 21:05 (08/30/2016 20:20:Jenna Todd RN) Reason for Admission: Onset of Labor; Rupture of Membranes (08/30/2016 20:20:Jenna Todd RN) Chief Complaint: Contractions (08/30/2016 20:20:Jenna Todd RN) Medications During : Vitamin (08/30/2016 20:20:Jenna Todd RN) EGA per Dates: 39.4 (08/30/2016 20:20:QS system process) Method of Arrival: Wheelchair (08/30/2016 20:20:Jenna Todd RN) Admitted From: Home (08/30/2016 20:20:Jenna Todd RN) Reason for Induction: Not Applicable (08/30/2016 20:20:Jenna Todd RN) Records Available: Yes (08/30/2016 20:20:Jenna Todd RN) General Admission Information: Reviewed (08/30/2016 20:20:Jenna Todd RN) BELONGINGS/ADVANCED DIRECTIVES Comments Regarding Disposition: see [facility] consent form (08/30/2016 20:20:Jenna Todd RN) Advance Direct for Healthcare: No, and Wants No Information (08/30/2016 20:20:Jenna Todd RN) Durable Power of [place] Clerk: No (08/30/2016 20:20:Jenna Todd RN) Living Will: No (08/30/2016 20:20:Jenna Todd RN) Organ Donor: No (08/30/2016 20:20:Jenna Todd RN) Pt Rights Information Given: Yes (08/30/2016 20:20:Jenna Todd RN) Pt Understands Pt Rights: Yes (08/30/2016 20:20:Jenna Todd RN) LEARNING ASSESSMENT Knowledge Level: Understands L_D Process; Understands Care Activities; Understands Diagnosis (08/30/2016 20:20:Jenna Todd RN) Barriers to Learning: None (08/30/2016 20:20:Jenna Todd RN) Learning Readiness: Motivated (08/30/2016 20:20:Jenna Todd RN) Learns Best By: 1 to 1 Instruction; Reading; Videos; Demonstration (08/30/2016 20:20:Jenna Todd RN) Learning Needs: Labor and Delivery Process; Pain Management; Symptoms to Report; Treatment Plan; Medication; Diagnosis; Nutrition; Equipment; Infant Care; Community Resources (08/30/2016 20:20:Jenna Todd RN) DOMESTIC VIOLANCE SCREENING Dom Viol Threatened/Hurt: No (08/30/2016 20:20:Jenna Todd RN) Hx of Abuse/Neglect past 2yrs: No (08/30/2016 20:20:Jenna Todd RN) Feel Unsafe Going Home: No (08/30/2016 20:20:Jenna Todd RN) Addt'l Observ Indicating Abuse: No (08/30/2016 20:20:Jenna Todd RN) Reason Unable to Complete Screen: N/A, Screen Completed (08/30/2016 20:20:Jenna Todd RN) Considered Personal Harm/Suicide: No (08/30/2016 20:20:Jenna Todd RN) NUTRITIONAL/FUNCTIONAL SCREENING Problem with Appetite >5 Days: No (08/30/2016 20:20:Jenna Todd RN) Chew/Swallow Difficulties: No (08/30/2016 20:20:Jenna Todd RN) Inappropriate Wt Gain/Loss: No (08/30/2016 20:20:Jenna Todd RN) Presence Skin Breakdown/Ulcer: No (08/30/2016 20:20:Jenna Todd RN) Special Diet: No (08/30/2016 20:20:Jenna Todd RN) Pt Requests Rn Endocrinology Visit: No (08/30/2016 20:20:Jenna Todd RN) Hx of Any of the Following?: N/A (08/30/2016 20:20:Jenna Todd RN) New Diagnosis of: N/A (08/30/2016 20:20:Jenna Todd RN) Requires Assist w/Ambulation: No (08/30/2016 20:20:Jenna Todd RN) Uses Assist Device to Ambulate: No (08/30/2016 20:20:Jenna Todd RN) Pt Requires Help w/ADL's: No (08/30/2016 20:20:Jenna Todd RN)
--- NOTE | 2016-09-01 06:15 | L&D Care Plan ---
LD CARE PLANS Datetime Report Generated by CPN: 09/01/2016 06:15 Datetime: 08/30/2016 21:03 Pain State: Risk For (Jenna Todd RN) Related To: Complication(s) of ; Treatment and Procedures; Post (Jenna Todd RN) Goal(s): Patients Pain will be Assessed and Managed; Patient will Verbalize Adequate Relief of Pain or the Ability to [place] with Current Pain (Jenna Todd RN) Interventions: Assess Pain Severity on Scale of 0 (None) to 5 (Severe); Assess Type, Location and Intensity of Pain Each Time Client Reports Discomfort and Notify Provider if Unusal Pain Develops; Encourage Proper Breathing and Relaxation Techniques; Offer Alternatives Such as Repositioning, Calm Environment, Massages, Diversional Activities, Ice Pack, Splinting, and Ambulation; Administer Analgesics as Ordered; Assist with Epidural Placement as Appropriate; Evaluate Therapeutic Effectiveness of Medication and Treatments (Jenna Todd RN) Outcome: Patient will Report Absence or Relief of Pain Consistent with Established Pain Goal (Jenna Todd RN) Outcome: Patient will have a Decrease in Signs and Symptoms of Discomfort (Jenna Todd RN) Outcome: Pain will be Controlled During Procedures (Jenna Todd RN) Anxiety State: Risk For (Jenna Todd RN) Related To: Labor and Delivery Process; Perceived or Actual Threat to ; Fear of Unknown; Situational Crisis; Medical Interventions; Significant Life Event (Jenna Todd RN) Goal(s): Patient will have Decreased Anxiety and be able to Function at Acceptable Levels (Jenna Tdod RN) Interventions: Assess Verbal and Nonverbal Behavioral Indicators of Anxiety; Assist Patient to Identify and Verbalize Symptoms of Anxiety; Identify and Demonstrate Techniques to Control Anxiety; Assist Patient with Coping Mechanisms to Manage Anxiety; Provide Theraputic Touch for the Patient; Explain to Patient, Using a Calm Reassuring Approach and Nonmedical Terms, All Activities, Procedures, and Concerns; Instruct Patient and Family about Post Discharge Care, Limitations, Symptoms to Report and Resources Available (Jenna Todd RN) Outcome: Patient will Identify, Verbalize and Demonstrate Techniques to Control Anxiety (Jenna Todd RN) Outcome: Patient's Posture, Facial Expressions, Gestures and Activity Level will Reflect Decreased Anxiety (Jenna Todd RN) Outcome: Patient will Verbalize a Sense of Control and/or Acceptance of the Situation (Jenna Todd RN) Outcome: Patient will Identify and Utilize Support Person (Jenna Todd RN) Knowledge Deficit State: Risk For (Jenna Todd RN) Related To: Labor and Delivery Process; Treatment and Procedures; Impending Alterations in Family Dynamics; Feeding and Care; Community Resources and Available Support Mechanisms (Jenna Todd RN) Goal(s): Patient will Accurately Verbalize Understanding of Plan of Care and Treatment; Patient and Family will Accurately Verbalize Understanding of the Disease Process (Jenna Todd RN) Interventions: Assess Motivation and Willingness of Patient/Family to Learn; Assess Preferred Learning Mode: One to One Instruction, Reading, Videos, Group Discussion or Demonstration; Assess Barriers to Learning: Pain, Emotional State, Language Barrier, Cognitive Impairment, Visual or Hearing Deficits; Assess Patient and Family Knowledge of Disease Process, Medications and Treatment; Discuss Therapy and/or Treatment Options, Describe Rationale Behind Management, Therapy and Treatment Recommendations; Instruct Patient and Family on Signs and Symptoms to Report; Instruct Patient and Family on Medication Effects and Side Effects; Provide Appropriate and Timely Education Using Multiple Techniques; Provide Patient and Family with Support Group Information and Resources; Give Clear and Thorough Explanations and Demonstrations (Jenna Todd RN) Outcome: Patient and Family will Verbalize Understanding of Condition, Treatment and Signs and Symptoms to Report (Jenna Todd RN) Outcome: Patient will Identify Perceived Learning Needs and Express Motivation to Learn (Jenna Todd RN) Outcome: Patient will Verbalize Understanding of Desired Content, and/or Performs Desired Skill Prior to Discharge (Jenna Todd RN) Infection State: Risk For (Jenna Todd RN) Related To: Prolonged Labor or Induction; Premature/Prolonged Rupture of Membranes; Invasive Procedures; Altered Tissue Integrity (Jenna Todd RN) Goal(s): The Patient will be Free of Infection, Vital Signs Stable and Lab Work within Normal Parameters (Jenna Todd RN) Interventions: Instruct and Reinforce Proper Handwashing, Hygiene, and Care Techniques to Patient and Family; Monitor Vital Signs; Monitor Patient for the Following Signs of Infection: Fever, Abdominal Tenderness, Unusual Discharge; Monitor Aminiotic Fluid, Urine and Lochia for Color and Odor; Observe Wounds, Incisions and Invasive Line Sites for Redness, Drainage and Edema; Assess IV Sites per Hospital Policy; Monitor Lab and Test Results and Notify Provider of Abnormal Findings; Assess Nutritional Status and Promote Good Nutrition (Jenna Todd RN) Outcome: Patient will Remain Free of Infection (Jenna Todd RN) Outcome: Infection will be Recognized Early to Allow for Prompt Treatment (Jenna Todd RN) Outcome: Patient will have Vital Signs Within Expected Range (Jenna Todd RN)
[2016-09-01 06:57] LABS: HEMATOCRIT 28.9 % (36.0-47.0); HEMOGLOBIN 9.2 g/dL (12.0-15.5); HGB HCT DIFFERENCE -1.3; MEAN CORPUSCULAR HEMOGLOBIN 28.9 pg (27.0-33.4); MEAN CORPUSCULAR HGB CONC 31.7 g/dL (32.0-36.0); MEAN CORPUSCULAR VOLUME 91 fl (80-97); RED BLOOD COUNT 3.16 10^6/uL (3.72-5.28); RED CELL DISTRIBUTION WIDTH 14.3 % (11.5-14.0); WHITE BLOOD COUNT 10.4 10^3/uL (4.0-10.5)
[2016-09-01] MEDS: DOCUSATE SODIUM 100 MG CAPSULE PO SCH ×2 (09:26→18:03)
[2016-09-01] MEDS: PRENATAL VITAMIN W-O CA NO5/FE FUMARATE/FA CAPSULE PO SCH (09:26)
--- NOTE | 2016-09-01 11:32 | PDOC PROGRESS REPORT ---
Subjective-OB Subjective: Post Delivery Day: 36 year old. Denies any needs at this time. Pt doing well, ambulatory, reports +flatus, regular diet, light bleeding and voiding well. No concerns. Physical Exam (OB) Vital Signs: Temp Pulse Resp BP Pulse Ox 98.2 F 91 18 131/67 H 100 09/01/16 07:20 09/01/16 07:20 09/01/16 07:20 09/01/16 07:20 09/01/16 07:20 Intake & Output 08/31/16 09/01/16 09/02/16 06:59 06:59 06:59 Intake Total 500 480 Output Total 1600 Balance 500 -1120 Weight 102.65 kg - Dressing Removed: Yes - metapore, opsite on Incision: Dressing - Bilateral Tubal Ligation Dressing Removed: No - Lochia Lochia Amount: Scant < 10 ml Lochia Color: Rubra/Red - Abdomen Description: Tender, Soft, Round Hernia Present: No Fundal Description: Firm, Midline Fundal Height: u/u - u/2 Objective-Diagnostic Laboratory: 09/01/16 06:30 09/01/16 06:30 WBC 10.4 RBC 3.16 L Hgb 9.2 L Hct 28.9 L MCV 91 MCH 28.9 MCHC 31.7 L RDW 14.3 H Plt Count 164 Assessment and Plan(PN) - Assessment and Plan (1) Status post primary low transverse section Is this a current diagnosis for this admission?: Yes (2) Acute blood loss as cause of postoperative anemia Is this a current diagnosis for this admission?: Yes - Time Spent with Patient Time with patient: Less than 15 minutes Medications reviewed and adjusted accordingly: Yes - Disposition Anticipated Discharge: Home Within: within 24 hours
[2016-09-02] MEDS: IBUPROFEN 800 MG TABLET PO SCH ×2 (00:13→05:10)
[2016-09-02 08:33] VITALS: BP 135/79
--- NOTE | 2016-09-02 09:26 | PDOC PROGRESS REPORT ---
Subjective-OB Subjective: Post Delivery Day: 36 year old. Denies any needs at this time. Ready to go home. Physical Exam (OB) Vital Signs: Temp Pulse Resp BP Pulse Ox 98.3 F 112 H 18 135/79 H 100 09/02/16 08:30 09/02/16 08:30 09/02/16 08:30 09/02/16 08:30 09/02/16 08:30 Intake & Output 09/01/16 09/02/16 09/03/16 06:59 06:59 06:59 Intake Total 480 Output Total 1600 Balance -1120 - Dressing Removed: No - opsite, dry drainage Incision: Dressing - Bilateral Tubal Ligation Dressing Removed: No - Lochia Lochia Amount: Small 10-25 ml Lochia Color: Rubra/Red - Abdomen Description: Soft, Round Hernia Present: No Bowel Sounds: Normoactive Flatus Presence: Present Stool: Yes Fundal Description: Firm, Midline Fundal Height: u/u - u/2 Objective-Diagnostic Laboratory: 09/01/16 06:30 Assessment and Plan(PN) - Time Spent with Patient Medications reviewed and adjusted accordingly: Yes - Disposition Anticipated Discharge: Home
--- NOTE | 2016-09-02 09:35 | PDOC DISCHARGE SUMMARY ---
Final Diagnosis Discharge Date: 09/02/16 - Final Diagnosis (1) Non-reassuring electronic monitoring tracing Is this a current diagnosis for this admission?: Yes (2) Obesity Is this a current diagnosis for this admission?: Yes (3) Positive GBS test Is this a current diagnosis for this admission?: Yes (4) Delivery by emergency caesarean section Is this a current diagnosis for this admission?: Yes (5) Is this a current diagnosis for this admission?: Yes (6) Blood transfusion during current hospitalization Is this a current diagnosis for this admission?: Yes Discharge Data - Discharge Medication Home Medications: Pnv with Ca,No.72/Iron/FA [Pnv Plus Multivit Tab] 1 each PO DAILY 08/30 Ferrous Sulfate 325 mg PO BID #60 tablet. 09/02/16 Ibuprofen [Motrin 800 mg Tablet] 800 mg PO Q6 #30 tablet 09/02/16 Oxycodone HCl/Acetaminophen [Percocet 5-325 mg Tablet] 1 tab PO Q4HP PRN #20 tablet 09/02/16 Gestational Age: 39.5 wks Reason(s) for Admission: Onset of Labor Procedures: Ultrasound Intrapartum Procedure(s): : Low Cervical, Transverse - [place] Data Baby 1 Female at 1 minute: 9 at 5 minutes: 9 Weight: 3.515 kg Home with Mother: Yes Complications: No - Diagnosis Test Laboratory: Temp Pulse Resp BP Pulse Ox 98.3 F 112 H 18 135/79 H 100 09/02/16 08:30 09/02/16 08:30 09/02/16 08:30 09/02/16 08:30 09/02/16 08:30 08/30/16 08/30/16 08/31/16 19:49 21:11 07:49 RBC 3.78 3.67 L Hgb 11.0 L 10.7 L Hct 34.2 L 33.7 L Urine Opiates Screen NEGATIVE 09/01/16 06:30 RBC 3.16 L Hgb 9.2 L Hct 28.9 L Urine Opiates Screen - Discharge information/Instructions Discharge Activity: Activity As Tolerated, Balance Activity w/Rest, No Driving, No Lifting Over 10 Pounds, No Lifting/Push/Pulling, Non-Ambulatory Child, Pelvic Rest, Slowly Increase Activity, No tub bath Discharge Diet: Regular Disposition: HOME, SELF-CARE Follow up with: [facility] in: 1
[2016-09-02] MEDS: DOCUSATE SODIUM 100 MG CAPSULE PO SCH (09:49)
[2016-09-02] MEDS: PRENATAL VITAMIN W-O CA NO5/FE FUMARATE/FA CAPSULE PO SCH (09:49)
--- NOTE | 2016-09-21 12:20 | OPERATIVE REPORT E ---
Operative Report NAME: LILY SANCHES : 1980 AGE: 36Y DATE OF SURGERY: ROOM: 221 ADDENDUM The patient received 2 units of packed red blood cells intraoperatively secondary to a 1500 mL acute hemorrhage during the OR case secondary to a torn uterine artery. DICTATING PHYSICIAN: Jose Alejandro Hester DO [id number] PHY#: [id number] ID: [id number] JOB#: [id number] ACCT: [id number] cc:Jose Alejandro Hester D.O. >
--- NOTE | 2016-09-21 15:30 | OPERATIVE REPORT E ---
Operative Report NAME: LILY SANCHES : 1980 AGE: 36Y DATE OF SURGERY: ROOM: 221 ADDENDUM Patient received 2 units of packed red blood cells emergently during her section secondary to acute operative hemorrhage of approximately 1500 mL of blood. DICTATING PHYSICIAN: Jose Alejandro Hester DO [id number] [id number] PHY#: [id number] ID: [id number] JOB#: [id number] ACCT: [id number] cc:Jose Alejandro Hester D.O. >
== END 2016-09-02 12:10 | disposition home or self-care (01) | DRG 765 ==
LOC: LC 19:43 → LR 21:00 → 2N 08-31 13:12 → LR 08-31 13:18 → 2S 08-31 13:49
PROVIDERS: ADMIT Obstetrics & Gynecology; ATTEND Obstetrics & Gynecology
PROC: 04LE3ZT Occlusion of Right Uterine Artery, Percutaneous Approach (ICD-10-PCS; 2016-08-30)
PROC: 10D00Z1 Extraction of Products of Conception, Low, Open Approach (ICD-10-PCS; principal; 2016-08-31)
PROC: 4A1HXCZ Monitoring of Products of Conception, Cardiac Rate, External Approach (ICD-10-PCS; 2016-08-31)
PROC: 30233N1 Transfusion of Nonautologous Red Blood Cells into Peripheral Vein, Percutaneous Approach (ICD-10-PCS; 2016-08-31)
PROC: 3E0234Z Introduction of Serum, Toxoid and Vaccine into Muscle, Percutaneous Approach (ICD-10-PCS; 2016-09-02)
DX: O69.1XX0 Labor and delivery complicated by cord around neck, with compression, not applicable or unspecified (principal); D62 Acute posthemorrhagic anemia; O71.89 Other specified obstetric trauma; O99.824 Streptococcus B carrier state complicating childbirth; O99.02 Anemia complicating childbirth; O67.8 Other intrapartum hemorrhage; O76 Abnormality in fetal heart rate and rhythm complicating labor and delivery; O34.13 Maternal care for benign tumor of corpus uteri, third trimester; D25.9 Leiomyoma of uterus, unspecified; O77.0 Labor and delivery complicated by meconium in amniotic fluid; O99.214 Obesity complicating childbirth; E66.9 Obesity, unspecified; Z68.38 Body mass index [BMI] 38.0-38.9, adult; Z23 Encounter for immunization; Z3A.39 39 weeks gestation of pregnancy; Z37.0 Single live birth; Z87.891 Personal history of nicotine dependence
CPT/HCPCS: 1961; 36415; 36430; 59025; 80307; 81005; 84112; 85025; 85027; 86592; 86850; 86900; 86901; 86920; 88307; 90707; 90715; 94799; J0690; J2250; J2270; J2300; J2310; J2405; J2540; J2550; J2590; J3010; J3490; P9016

== ENCOUNTER 2016-10-28 10:10 | Emergency (ER) | payer MEDICAID ==
--- NOTE | 2016-10-28 10:20 | ER Document Report ---
ED Medical Screen (RME) - General Stated Complaint: BLOOD PRESSURE PROBLEM Notes: She states she was sent from [facility] for further evaluation of high blood pressure. Recent childbirth 2 months ago. Patient states she takes her blood pressure medicine daily, which she started taking after delivery. Patient denies symptoms. I have greeted and performed a rapid initial assessment of this patient. A comprehensive ED assessment and evaluation of the patient, analysis of test results and completion of the medical decision making process will be conducted by additional ED providers. TRAVEL OUTSIDE OF THE [place] IN LAST 30 DAYS: No - Related Data Allergies/Adverse Reactions: No Known Allergies Allergy (Verified 08/30/16 19:49) Past Medical History Past Surgical History: Reports: Hx Appendectomy, Hx Orthopedic Surgery - R ankle
[2016-10-28 11:03] LABS: ABSOLUTE EOSINOPHILS # (AUTO) 0.1 10^3/uL (0.0-0.6); ABSOLUTE MONOCYTES (AUTO) 0.3 10^3/uL (0.1-1.4); ABSOLUTE NEUT (AUTO) 4.9 10^3/uL (1.7-8.2); BASOPHILS % (AUTO) 0.3 % (0-2); EOSINOPHILS % (AUTO) 0.9 % (0-6); HEMATOCRIT 40.7 % (36.0-47.0); HEMOGLOBIN 13.5 g/dL (12.0-15.5); HGB HCT DIFFERENCE -0.2; MEAN CORPUSCULAR HEMOGLOBIN 28.5 pg (27.0-33.4); MEAN CORPUSCULAR HGB CONC 33.1 g/dL (32.0-36.0); MEAN CORPUSCULAR VOLUME 86 fl (80-97); MONOCYTES % (AUTO) 4.3 % (3-13); RED BLOOD COUNT 4.72 10^6/uL (3.72-5.28); RED CELL DISTRIBUTION WIDTH 15.6 % (11.5-14.0); SEGMENTED NEUTROPHILS % (AUTO) 67.5 % (42-78); WHITE BLOOD COUNT 7.3 10^3/uL (4.0-10.5)
[2016-10-28 11:23] LABS: ALANINE AMINOTRANSFERASE 28 U/L (9-52); ALBUMIN 4.2 g/dL (3.5-5.0); ALKALINE PHOSPHATASE 79 U/L (38-126); ANION GAP 15 (5-19); ASPARTATE AMINO TRANSFERASE 26 U/L (14-36); BILIRUBIN,DIRECT 0.2 mg/dL (0.0-0.4); BILIRUBIN,TOTAL 0.6 mg/dL (0.2-1.3); BLOOD UREA NITROGEN 10 mg/dL (7-20); CALCIUM 9.8 mg/dL (8.4-10.2); CARBON DIOXIDE 26 mmol/L (22-30); CHLORIDE 105 mmol/L (98-107); CREATINE KINASE 164 U/L (30-135); GLUCOSE 77 mg/dL (75-110); LIPASE 49.6 U/L (23-300); POTASSIUM 3.8 mmol/L (3.6-5.0); SODIUM 145.8 mmol/L (137-145); TOTAL PROTEIN 7.4 g/dL (6.3-8.2)
[2016-10-28 11:26] LABS: APPEARANCE,URINE SLIGHTLY-CLOUDY; BILIRUBIN,URINE NEGATIVE (NEGATIVE); GLUCOSE, URINE NEGATIVE (NEGATIVE); KETONES,URINE NEGATIVE (NEGATIVE); LEUKOCYTE ESTERASE,URINE NEGATIVE (NEGATIVE); NITRITE,URINE NEGATIVE (NEGATIVE); PROTEIN,URINE 30 mg/dL (NEGATIVE); URINE SPECIFIC GRAVITY 1.013; UROBILINOGEN,URINE NEGATIVE mg/dL (<2.0)
[2016-10-28 11:35] LABS: CREATINE KINASE MB 0.53 ng/mL (<4.55)
[2016-10-28 11:38] LABS: TROPONIN I < 0.012 ng/mL
--- NOTE | 2016-10-28 13:28 | ER Document Report ---
HPI - HPI Patient complains to provider of: elevated blood pressure Onset: Other - 2 months Onset/Duration: Persistent Quality of pain: No pain Pain Level: 0 Context: Patient states that she is currently 2 months after a delivery. Patient states she had a due to the cord being wrapped around the baby's neck. Patient states that since the delivery she has had elevated blood pressure requiring medication. Patient was at her [employer] office for a checkup and was told that her blood pressure was elevated 183/118. She was advised to come to the emergency department for further evaluation. Patient states she did not take her blood pressure medication today as she likes to take it after eating a meal. Patient denies any headache, chest pain, shortness of breath, abdominal pain, urinary problems or vision changes. Associated Symptoms: Other. denies: Chest pain, Fever - Elevated blood pressure , Headache, Shortness of breath Exacerbated by: Denies Relieved by: Denies Similar symptoms previously: No Recently seen / treated by doctor: Yes - ROS ROS below otherwise negative: Yes Systems Reviewed and Negative: Yes All other systems reviewed and negative - CONSTITUTIONAL Constitutional: DENIES: Fever, Chills - NEURO Neurology: DENIES: Headache, Weakness - CARDIOVASCULAR Cardiovascular: DENIES: Chest pain - RESPIRATORY Respiratory: DENIES: Trouble Breathing, Coughing - GASTROINTESTINAL Gastrointestinal: DENIES: Abdominal Pain, Nausea, Patient vomiting - REPRODUCTIVE Reproductive: DENIES: : - MUSCULOSKELETAL Musculoskeletal: DENIES: Back Pain, Neck Pain - DERM Skin Color: Normal Past Medical History - General Information source: Patient - Social History Smoking Status: Never Smoker Chew tobacco use (# tins/day): No Frequency of alcohol use: Rare Drug Abuse: None Occupation: none Lives with: Family Family History: Reviewed & Not Pertinent - Past Medical History Cardiac Medical History: Reports: Hx Hypertension Renal/ Medical History: Denies: Hx Peritoneal Dialysis Past Surgical History: Reports: Hx Appendectomy, Hx Orthopedic Surgery - R ankle Vertical Provider Document - CONSTITUTIONAL Agree With Documented VS: Yes Exam Limitations: No Limitations General Appearance: WD/WN, No Apparent Distress - INFECTION CONTROL TRAVEL OUTSIDE OF THE [place] IN LAST 30 DAYS: No - HEENT HEENT: Atraumatic, Normocephalic - NECK Neck: Normal Inspection, Supple. negative: Lymphadenopathy-Left, Lymphadenopathy-Right - RESPIRATORY Respiratory: Breath Sounds Normal, No Respiratory Distress, Chest Non-Tender O2 Sat by Pulse Oximetry: 99 - CARDIOVASCULAR Cardiovascular: Regular Rate, Regular Rhythm, No Murmur Pulses: Normal: Radial - GI/ABDOMEN Gastrointestinal: Abdomen Soft, Abdomen Non-Tender, No Organomegaly - BACK Back: Normal Inspection. negative: CVA Tenderness-Right, CVA Tenderness-Left - MUSCULOSKELETAL/EXTREMETIES Musculoskeletal/Extremeties: MAEW, FROM, No Edema - NEURO Level of Consciousness: Awake, Alert, Appropriate Motor/Sensory: No Motor Deficit, No Sensory Deficit - DERM Integumentary: Warm, Dry, No Rash Course - Re-evaluation Re-evalutation: 10/28/16 13:[address] Gonzalez who recommends consulting with regarding patient presentation. Does not recommend any additional testing. Consulted with Dr. Cook who states that he was just concerned that patient had really elevated blood pressure in the office 180s over 110s and states that patient had told him that she had taken her blood pressure medication today. Patient states here that she has not taken her blood pressure medicine as she has been busy running to appointments. Patient presently denies any complaints or symptoms. Dr. Cook states that patient has a follow-up appointment in one week. - Vital Signs Vital signs: Temp Pulse Resp BP Pulse Ox 98.8 F 87 20 161/106 H 99 10/28/16 10:17 10/28/16 10:17 10/28/16 10:17 10/28/16 10:17 10/28/16 10:17 - Laboratory Result Diagrams: 10/28/16 10:35 10/28/16 10:35 Laboratory results interpreted by me: 10/28/16 10/28/16 10/28/16 10:35 10:35 10:35 RDW 15.6 H Sodium 145.8 H Creatine Kinase 164 H Urine Protein 30 H Urine Blood MODERATE H Urine Ascorbic Acid 40 H 10/28/16 13:28 Labs- Entire Visit 10/28/16 10/28/16 10/28/16 10:35 10:35 10:35 WBC 7.3 RBC 4.72 Hgb 13.5 Hct 40.7 MCV 86 MCH 28.5 MCHC 33.1 RDW 15.6 H Plt Count 224 Seg Neutrophils % 67.5 Lymphocytes % 27.0 Monocytes % 4.3 Eosinophils % 0.9 Basophils % 0.3 Absolute Neutrophils 4.9 Absolute Lymphocytes 2.0 Absolute Monocytes 0.3 Absolute Eosinophils 0.1 Absolute Basophils 0.0 Sodium 145.8 H Potassium 3.8 Chloride 105 Carbon Dioxide 26 Anion Gap 15 BUN 10 Creatinine 0.80 Est GFR ( Amer) > 60 Est GFR (Non-Af Amer) > 60 Glucose 77 Calcium 9.8 Total Bilirubin 0.6 Direct Bilirubin 0.2 Indirect Bilirubin Not Reportable Neonat Total Bilirubin Not Reportable AST 26 ALT 28 Alkaline Phosphatase 79 Creatine Kinase 164 H CK-MB (CK-2) 0.53 Troponin I < 0.012 Total Protein 7.4 Albumin 4.2 Lipase 49.6 Urine Color Urine Appearance Urine pH Ur Specific [place] Urine Protein Urine Glucose (UA) Urine Ketones Urine Blood Urine Nitrite Urine Bilirubin Urine Urobilinogen Ur Leukocyte Esterase Urine WBC (Auto) Urine RBC (Auto) Urine Bacteria (Auto) Squamous Epi Cells Auto Urine Mucus (Auto) Urine Ascorbic Acid 10/28/16 10:35 WBC RBC Hgb Hct MCV MCH MCHC RDW Plt Count Seg Neutrophils % Lymphocytes % Monocytes % Eosinophils % Basophils % Absolute Neutrophils Absolute Lymphocytes Absolute Monocytes Absolute Eosinophils Absolute Basophils Sodium Potassium Chloride Carbon Dioxide Anion Gap BUN Creatinine Est GFR ( Amer) Est GFR (Non-Af Amer) Glucose Calcium Total Bilirubin Direct Bilirubin Indirect Bilirubin Neonat Total Bilirubin AST ALT Alkaline Phosphatase Creatine Kinase CK-MB (CK-2) Troponin I Total Protein Albumin Lipase Urine Color YELLOW Urine Appearance SLIGHTLY-CLOUDY Urine pH 5.0 Ur Specific [place] 1.013 Urine Protein 30 H Urine Glucose (UA) NEGATIVE Urine Ketones NEGATIVE Urine Blood MODERATE H Urine Nitrite NEGATIVE Urine Bilirubin NEGATIVE Urine Urobilinogen NEGATIVE Ur Leukocyte Esterase NEGATIVE Urine WBC (Auto) 1 Urine RBC (Auto) 3 Urine Bacteria (Auto) TRACE Squamous Epi Cells Auto 4 Urine Mucus (Auto) RARE Urine Ascorbic Acid 40 H - Diagnostic Test Radiology reviewed: Reports reviewed Discharge - Discharge Clinical Impression: Hypertension Qualifiers: Hypertension type: essential hypertension Qualified Code(s): I10 - Essential ( primary) hypertension Condition: Stable Disposition: HOME, SELF-CARE Instructions: High Blood Pressure, Requiring Treatment ([facility]) Additional Instructions: Return immediately for any new or worsening symptoms Followup with your primary care provider, call tomorrow to make a followup appointment Take your blood pressure medication as prescribed. Follow-up with Dr. Cook in one week as previously planned Decrease sodium in your diet. Referrals: [facility] [Provider Group] - Follow up as needed [facility] [Provider Group] - Follow up in 3-5 days
[2016-10-28 14:23] VITALS: BP 151/97
--- NOTE | 2016-10-28 18:21 | EKG REPORT ---
SEVERITY:- BORDERLINE ECG - SINUS RHYTHM PROBABLE LEFT ATRIAL ABNORMALITY POOR R PROGRESSION ANTERIOR PRECORDIAL LEADS, ?LEAD PLACEMENT ERROR. : Confirmed by: Eduardo Cárdenas MD 28-Oct-2016 18:21:10
== END 2016-10-28 14:30 | disposition home or self-care (01) ==
LOC: ER 10:10
DX: I10 Essential (primary) hypertension (principal)
CPT/HCPCS: 36415; 71020; 80053; 81001; 82550; 82553; 83690; 84484; 85025; 93005; 93010; 99284